=== PATIENT | female | born 1950 | race Caucasian/White ===

== ENCOUNTER 2021-03-09 07:42 | Outpatient (REF) | payer MEDICARE, SELFPAY ==
[2021-03-09 11:49] LABS: Hematocrit 39.2 % (37-47); Hemoglobin 12.2 g/dl (12.0-16.0); Mean Corpuscular HGB Conc 31.1 g/dl (31.0-35.0); Mean Corpuscular Hemoglobin 28.8 pg (27.0-33.0); Mean Corpuscular Volume 92.7 fL (80-98); Mean Platelet Volume 9.8 fL (9.4-12.3); Platelet Count 213 X10*3/uL (160-400); Red Blood Count 4.23 X10*6/uL (4.20-5.50); Red Cell Distribution Width 13.6 % (11.0-16.0); White Blood Count 5.4 X10*3/uL (4.8-10.8)
[2021-03-09 12:11] LABS: Glucose Urine UA NEG (NEG); Leukocyte Esterase Urine NEG (NEG); Nitrite Urine NEG (NEG); Specific Gravity - Urine 1.015 (1.005-1.025); Urine Blood 1+ (NEG); Urine Ketones NEG (NEG); Urine Protein NEG (NEG-TRACE)
[2021-03-09 12:14] LABS: Alanine Aminotransferase 17 U/L (0-31); Alkaline Phosphatase 83 U/L (39-117); Anion Gap 11 (12-20); Aspartate Amino Transferase 19 U/L (5-31); Bilirubin Total 0.6 mg/dL (0.0-1.0); Blood Urea Nitrogen 21 mg/dL (9-16); Calcium 9.3 mg/dL (8.4-10.2); Carbon Dioxide 27 mmol/L (22-29); Chloride 105 mmol/L (96-108); Cholesterol 185 mg/dL; Estimated Glomerular Filt Rate > 60; Glucose Fasting 111 mg/dL (60-99); HDL Cholesterol 57 mg/dL; LDL Cholesterol Calculated 111 mg/dl; Potassium 4.3 mmol/L (3.3-5.1); Sodium 139 mmol/L (135-145); Total Protein 6.8 g/dL (6.5-8.0); Triglycerides 85 mg/dL
[2021-03-09 12:23] LABS: Appearance Urine CLEAR; Color Urine YELLOW
[2021-03-09 12:34] LABS: TSH reflex Free T4 1.78 uIU/mL (0.32-4.0)
[2021-03-09 12:46] LABS: RBC Urine 0-2 /HPF (0); Squamous Epithelial Cell Urine TRACE /LPF; WBC Urine 0 /HPF (0-4)
== END 2021-03-09 07:43 | disposition home or self-care (01) ==
LOC: HO.HMGCLDS 07:42
PROVIDERS: PCP Internal Medicine; Visit Provider Internal Medicine
DX: Z00.00 Encounter for general adult medical examination without abnormal findings (principal)
CPT/HCPCS: 36415; 80053; 80061; 81001; 84443; 85027

== ENCOUNTER 2021-04-07 12:58 | Outpatient (REF) | payer MEDICARE, SELFPAY ==
--- NOTE | ~2021-04-07 | MM_ITS ---
EXAMINATION: BONE DENSITOMETRY CLINICAL INDICATION: Asymptomatic menopausal state. Encounter for screening for osteoporosis. COMPARISON: This is the patient's baseline examination. TECHNIQUE: Using a [employer] DXA System (software version: 13.1) manufactured by [employer], dual-energy x-ray absorptiometry was performed of the lumbar spine and left hip. The images are of good technical quality. Summary results are attached. FINDINGS: AP SPINE L1-L2 (excluding L3 and L4): The data of L1-L4 has been changed to exclude the L3 and L4 vertebral bodies, because increased sclerosis at these levels may cause overestimation of lumbar spine density. BMD 1.147 g/cm2, Z-score 0.4, T-score -0.2, normal. LEFT FEMUR, NECK: BMD 0.920 g/cm2, Z-score 0.1, T-score -0.8, normal. LEFT FEMUR, TOTAL: BMD 1.015 g/cm2, Z-score 0.7, T-score 0.1, normal. IDENTIFIED RISK FACTORS: Menopause. HISTORY OF FRACTURE: None listed. MEDICATIONS: Calcium or multivitamin. MM/XR DEXA axial skeleton IMPRESSION: 1. DIAGNOSIS: Normal bone density based on the lowest T-score value of -0.8 in the femoral neck applying World Health Organization criteria. 2. 10-YEAR FRACTURE RISK PREDICTION, FRAX: According to the guidelines, FRAX calculation should only be performed on patients in the osteopenia bone density category. Therefore, FRAX was not performed on this patient. 3. Treatment Recommendations: NOF guidelines recommend consideration for treatment in postmenopausal women and men age 50 and older presenting with the following: -A hip or vertebral (clinical or morphometric) fracture. -T-score less than or equal to -2.5 at the femoral neck or spine after appropriate evaluation to exclude secondary causes. -Low bone mass at the hip or spine and a 10-year fracture probability by FRAX of greater than or equal to 3% for hip fracture or greater than or equal to 20% for major osteoporotic fracture based on the [place] adapted WHO algorithm. 4. Other Recommendations: All treatment decisions require clinical judgment and consideration of individual patient factors, including patient preferences, comorbidities, previous drug use, risk factors not captured in the FRAX model (e.g. frailty, falls, vitamin D deficiency, increased bone turnover, interval significant decline in bone density) and possible under or overestimation of fracture risk by FRAX. FUTURE SCAN RECOMMENDATION: People with diagnosed cases of osteoporosis or at high risk for fracture should have regular bone mineral density tests. For patients eligible for Medicare, routine testing is allowed once every 2 years. The testing frequency can be increased to one year for patients who have rapidly progressing disease, those who are receiving or discontinuing medical therapy to restore bone mass, or have additional risk factors.
== END 2021-04-07 12:59 | disposition home or self-care (01) ==
LOC: HO.MAMMO 12:58
PROVIDERS: PCP Internal Medicine; Visit Provider Internal Medicine
DX: Z13.820 Encounter for screening for osteoporosis (principal); Z78.0 Asymptomatic menopausal state; Z79.899 Other long term (current) drug therapy
CPT/HCPCS: 77080

== ENCOUNTER 2021-09-12 11:31 | Outpatient (REF) | payer MEDICARE, SELFPAY ==
[2021-09-12 14:56] LABS: Estimated Average Glucose 128 mg/dL; Hemoglobin A1c % 6.1 %
[2021-09-12 15:07] LABS: Alanine Aminotransferase 17 U/L (0-31); Albumin Level 4.3 g/dL (3.5-5.0); Alkaline Phosphatase 93 U/L (39-117); Anion Gap 12 (12-20); Aspartate Amino Transferase 19 U/L (5-31); Bilirubin Total 0.4 mg/dL (0.0-1.0); Blood Urea Nitrogen 18 mg/dL (9-16); Calcium 9.7 mg/dL (8.4-10.2); Carbon Dioxide 29 mmol/L (22-29); Chloride 104 mmol/L (96-108); Estimated Glomerular Filt Rate > 60; Glucose Fasting 101 mg/dL (60-99); Potassium 4.5 mmol/L (3.3-5.1); Sodium 140 mmol/L (135-145); Total Protein 7.4 g/dL (6.5-8.0)
== END 2021-09-12 11:32 | disposition home or self-care (01) ==
LOC: HO.HMGCLDS 11:31
PROVIDERS: Visit Provider Internal Medicine
DX: Z00.00 Encounter for general adult medical examination without abnormal findings (principal); R73.9 Hyperglycemia, unspecified; I10 Essential (primary) hypertension; E55.9 Vitamin D deficiency, unspecified
CPT/HCPCS: 36415; 80053; 83036

== ENCOUNTER 2022-01-15 08:52 | Outpatient (REF) | payer MEDICARE, SELFPAY ==
--- NOTE | ~2022-01-15 | XR_ITS ---
EXAMINATION: XR CHEST CLINICAL INFORMATION: Acute bronchitis. COMPARISON: Chest 05/29/2019 TECHNIQUE: 2 views of the chest were obtained. FINDINGS: The lungs are well-expanded and clear. The heart size and pulmonary vascularity is normal. There is moderate spondylosis dorsal spine. No lytic process XR/XR chest 2V IMPRESSION: No acute cardiopulmonary process seen. There is moderate spondylosis dorsal spine
== END 2022-01-15 08:53 | disposition home or self-care (01) ==
LOC: HO.HMGCX 08:52
PROVIDERS: PCP Internal Medicine; Visit Provider Internal Medicine
DX: J20.9 Acute bronchitis, unspecified (principal)
CPT/HCPCS: 71046

== ENCOUNTER 2022-04-13 07:36 | Outpatient (REF) | payer MEDICARE, SELFPAY ==
[2022-04-13 11:34] LABS: Hematocrit 37.5 % (37.0-47.0); Mean Corpuscular Hemoglobin 29.9 pg (27.0-33.0); Mean Corpuscular Volume 93.3 fL (80.0-98.0); Mean Platelet Volume 9.7 fL (9.4-12.3); Platelet Count 224 X10*3/uL (160-400); Red Blood Count 4.02 X10*6/uL (4.20-5.50); Red Cell Distribution Width 13.6 % (11.0-16.0); White Blood Count 5.9 X10*3/uL (4.8-10.8)
[2022-04-13 11:49] LABS: Estimated Average Glucose 126 mg/dL
[2022-04-13 12:20] LABS: Cholesterol 192 mg/dL; HDL Cholesterol 53 mg/dL; LDL Cholesterol Calculated 118 mg/dl; Triglycerides 107 mg/dL; Vitamin D 25-OH Total 32.6 ng/mL (>30)
== END 2022-04-13 07:37 | disposition home or self-care (01) ==
LOC: HO.HMGCLDS 07:36
PROVIDERS: PCP Internal Medicine; Visit Provider Internal Medicine
DX: Z00.00 Encounter for general adult medical examination without abnormal findings (principal); R73.9 Hyperglycemia, unspecified; E55.9 Vitamin D deficiency, unspecified; I10 Essential (primary) hypertension
CPT/HCPCS: 36415; 80061; 82306; 83036; 84443; 85027

== ENCOUNTER 2023-04-19 07:57 | Outpatient (REF) | payer MEDICARE, SELFPAY ==
[2023-04-19 11:11] LABS: MANUAL DIFF FLAG NO
[2023-04-19 11:34] LABS: Basophils Percent Auto 0.6 % (0-2); Eosinophils Absolute Auto 0.3 X10*3/uL (0.0-0.4); Eosinophils Percent Auto 4.7 % (0-4); Hematocrit 36.1 % (37.0-47.0); Hemoglobin 11.4 g/dl (12.0-16.0); Imm Gran Abs Auto 0.02 X10*3/uL (0.00-0.03); Imm Gran Pct Auto 0.3 % (0.0-0.4); Lymphocytes Absolute Auto 1.9 X10*3/uL (1.2-4.9); Lymphocytes Percent Auto 28.3 % (20-40); Mean Corpuscular HGB Conc 31.6 g/dl (31.0-35.0); Mean Corpuscular Hemoglobin 29.6 pg (27.0-33.0); Mean Corpuscular Volume 93.8 fL (80.0-98.0); Mean Platelet Volume 9.6 fL (9.4-12.3); Monocytes Absolute Auto 0.6 X10*3/uL (0.1-1.2); Monocytes Percent Auto 9.4 % (2-11); Neutrophils Absolute Auto 3.9 x10*3/uL (2.0-8.3); Neutrophils Percent Auto 56.7 % (45-73); Platelet Count 230 X10*3/uL (160-400); Red Blood Count 3.85 X10*6/uL (4.20-5.50); White Blood Count 6.8 X10*3/uL (4.8-10.8)
[2023-04-19 11:50] LABS: Estimated Average Glucose 123 mg/dL; Hemoglobin A1c % 5.9 % (<6.0)
[2023-04-19 11:56] LABS: Alanine Aminotransferase 19 U/L (0-31); Albumin Level 4.1 g/dL (3.5-5.0); Alkaline Phosphatase 85 U/L (39-117); Anion Gap 11 (12-20); Aspartate Amino Transferase 19 U/L (5-31); Bilirubin Total 0.3 mg/dL (0.0-1.0); Blood Urea Nitrogen 17 mg/dL (9-16); Calcium 9.4 mg/dL (8.4-10.2); Carbon Dioxide 28 mmol/L (22-29); Chloride 104 mmol/L (96-108); Cholesterol 201 mg/dL (<200); Estimated Glomerular Filt Rate > 60; Glucose Fasting 124 mg/dL (60-99); HDL Cholesterol 50 mg/dL (>40); LDL Cholesterol Calculated 127 mg/dL (<100); Potassium 4.3 mmol/L (3.3-5.1); Sodium 139 mmol/L (135-145); Total Protein 7.2 g/dL (6.5-8.0); Triglycerides 123 mg/dL (<150)
[2023-04-19 12:57] LABS: Creatinine Urine 86.32 mg/dL; Microalbum/Creatinine Ratio Ur 18.5 ug/mg cr (<30)
== END 2023-04-19 07:58 | disposition home or self-care (01) ==
LOC: HO.HMGCLDS 07:57
PROVIDERS: PCP Internal Medicine; Visit Provider Internal Medicine
DX: Z00.00 Encounter for general adult medical examination without abnormal findings (principal); E55.9 Vitamin D deficiency, unspecified; R73.9 Hyperglycemia, unspecified
CPT/HCPCS: 36415; 80053; 80061; 82043; 82570; 83036; 85025

== ENCOUNTER 2023-04-26 08:51 | Outpatient (AMB) | payer MEDICARE, SELFPAY ==
--- NOTE | 2023-04-26 09:11 | AM.OFFVISMDC ---
Intake Vital Signs 04/26/23 09:13 Height 5 ft 6 in Weight 233 lb BMI 37.6 BP 128/74 Blood Pressure Location Lt brachial Position Sitting Pulse 62 Pulse Source Pulse Oximeter Pulse Oximetry (%) 95 Oxygen Delivery Method Room Air Intake Visit Reasons: MAW Intake Note: Pt is here today for AWV. Allergies acetaminophen [Percocet] Allergy (Unknown, Verified 04/26/23 09:18) chest pressure oxycodone [Percocet] Allergy (Unknown, Verified 04/26/23 09:18) chest pressure bee Allergy (Uncoded 04/26/23 09:18) throat swelling Medication List - Last Reconciled 04/26/23 by Deborah Hines MD acetaminophen (Tylenol) 650 mg PO BID PRN albuterol sulfate 90 mcg/actuation 1 inh inhalation QID PRN aspirin 325 mg PO DAILY atenolol 50 mg PO DAILY celecoxib (Celebrex) PO fluticasone propionate 50 mcg/actuation 1 spray intranasal DAILY furosemide 20 mg PO DAILY HPI MAW HPI Details Pt presents for annual visit. Pt had L knee arthroplasty 1 month ago and recovered well. Patient complains of chronic epigastric abdominal discomfort worse after eating. She denies nausea vomiting change in bowel habits hematochezia melena. Patient has a history of peptic ulcer disease and H pylori infection over 10 years ago. She would like to see a cloth covered helmet puller for a Initiated the conversation about Advanced Directives. Advanced Directives help? patients prepare for current and future decisions about their medical treatment? and place of care. Discussed with patient that it is a process where a patients? current condition and prognosis are reviewed, their wishes for information? regarding their illness are elicited, and likely medical dilemmas are presented? and options discussed. The form can be amended as needed, reviewed yearly and? make changes as needed IPPE/AWV ? year old presents? for her ? Annual? Wellness Visit, initial visit.? Medical / Social History Reviewed? Past Medical History ?Yes? . ? [place]? of Care / Care Team list updated ?Yes . ? Surgical/Hospitalization? History ?Yes . ? Current Medications? (including OTC and supplements) ?Yes . ? Family History ?Yes? . ? Tobacco? Control form ?Yes . ? AUDIT-C (Alcohol use) form? ?Yes . ? Illicit drug use in Social? History ?Yes . ? Current diagnosis of? depression? ?No ? Appropriate PHQ2/PHQ9? completed ?Yes . ? Data entered by ?Medical? Boom Supervisor and reviewed by provider ? Fall Risk ? Fall? History? Have you had any falls with? injury in the past year? ?No . ? Have you had two or more? falls in the past year? ?No . ? Fall Risk Assessment: ?No? falls in the past year . ? HRA filled out by? the patient, reviewed by Provider and scanned. ? IPPE/AWV ? Balance? [place]? ?Yes . ? Tandem? walk ?Yes . ? Walk and? Turn ?Yes . ? Rise from? sit to stand ?Yes . ?Vision? Corrective? lens ?Yes ? Vision? screen ? Up-to-date, has an appointment [] for vision? screening and glaucoma screening ?Hearing? Whisper? test ?pass .? Initiated the conversation about Advanced Directives. Advanced Directives help? patients prepare for current and future decisions about their medical treatment? and place of care. Discussed with patient that it is a process where a patients? current condition and prognosis are reviewed, their wishes for information? regarding their illness are elicited, and likely medical dilemmas are presented? and options discussed. The form can be amended as needed, reviewed yearly and? make changes as needed Written? Plan?Completed. See Patient? Documents. repeat EGD and is due for colonoscopy. [facility] Medical History Vitamin D deficiency Hyperglycemia HTN (hypertension) Mammogram normal Postmenopausal Annual physical exam Primary osteoarthritis of both knees Surgical History H/O colonoscopy History of right knee joint replacement Family History Father Stroke Mother Diabetes Social History Housing: House Patient Tobacco Use Status: Never used Tobacco e-Cigarette/Vaping Use: Never Used Current occupational status: employed Cognitive needs: No Hearing needs: No Vision needs: No Questionnaire Medicare Wellness Checkup [age] What gender do you identify with?: female During the past 4 weeks, how much have you been bothered by emotional problems such as feeling anxious, depressed, irritable, sad or downhearted, and blue?: slightly During the past 4 weeks, has your physical & emotional health limited your social activities with family, friends, neighbors, or groups?: slightly During the past 4 weeks, how much bodily pain have you generally had?: mild pain During the past 4 weeks, was someone available to help you if you needed & wanted help?: yes, as much as I wanted During the past 4 weeks, what was the hardest physical activity you could do for at least 2 minutes?: light Can you get to places out of walking distance without help? (For eg., can you travel alone on buses, taxis or drive your car?): No Can you go shopping for groceries or clothes without someone's help?: No Can you prepare your own meals?: Yes Can you do your housework without help?: Yes Because of any health problems, do you need the help of another person with your personal care needs such as eating, bathing, dressing or getting around the house?: No Can you handle your own money without help?: Yes During the past 4 weeks, how would you rate your health in general?: very good During the past 4 weeks how have things been going for you?: pretty well Are you having difficulties driving your car?: not applicable, I don't use a car Do you always fasten your seat belt when you are in a car?: yes, usually During past 4 weeks, have you been bothered by the following: never: Falling or dizzy when standing up, Trouble eating well?, Teeth or denture problems? and Problems using the telephone? and seldom: Sexual problems? and Tiredness or fatigue? Have you fallen 2 or more times in the past year?: No Are you afraid of falling?: No Are you a smoker?: no During the past 4 weeks, how many drinks of wine, beer, or other alcoholic beverages did you have?: no alcohol at all Do you exercise for about 20 minutes 3 or more times a week?: yes, most of the time Have you been given information to help with the following?: no: Hazards in your house that might hurt you? and no: Keeping track of your medications? How often do you have trouble taking medicines the way you have been told to take them?: I always take medicine as prescribed How confident are you that you can control & manage most of your health problems?: very confident What is your race?: White Mini Mental State Exam (MMSE) Orientation What is the (year) (season) (date) (day) (month)?: year, season, date, day and month Where are we (state) (county) (town or city) (hospital) (floor)?: state, county, town or city, hospital/clinic and floor Registration Name of 3 unrelated objects clearly and slowly, then ask patient to repeat all 3 of them. (1st repeat determines score. Make sure they can repeat all three): object 1, object 2 and object 3 Attention & Calculation (CHOOSE ONE) Ask pt to begin with 100 & count backward by 7. Stop after 5 repeats. If pt cannot ask them to spell the word WORLD backward.: 93 Spell WORLD backwards (DLROW): 5 letters Recall Ask patient to repeat the 3 items from question #3.: object 1, object 2 and object 3 Language Show patient a wristwatch & ask what it is. Repeat for pencil.: watch and pencil Ask the patient to repeat the phrase 'No ifs, ands, or buts' after you.: correct Ask the patient to 'take a piece of paper with their right hand' 'fold paper in half' 'place paper on floor': take paper in right hand, fold paper in half and place paper on floor Print the sentence 'CLOSE YOUR EYES' on a piece. If patient actually closes eyes then score.: followed written direction Give patient a blank piece of paper & ask to write a sentence. Score if it contains a noun & verb.: sentence contains subject and verb Ask patient to copy figure of intersecting pentagons exactly. Score if all 10 angles & 2 intersects are included.: all 10 angles present & 2 are intersected Score Score: 31 Activity of Daily Living Bathing - sponge bath, tub bath or shower: receives no assistance (gets in/out by self, if usual bathing means Dressing - getting clothes from closets & drawers, including inner/outer garments & fasteners.: gets clothes & gets completely dressed without help Toileting - going to the 'toilet room' for urine/bowel elimination & cleaning self/arranging clothes: goes to toilet room, cleans self, arranges clothes without help Transfer: moves in & out of bed and chair without help (may use support object) Continence: controls urination/bowel movements completely by self Feeding: feeds self without help Total Score: 0 Information obtained from: patient Using telephone: independent Traveling: dependent Shopping: dependent Preparing meals: independent Housework: independent Taking medicine: independent Managing money: independent PHQ-9 Over the last 2 weeks, how often have you been bothered by any of the following problems? 1. Little interest or pleasure in doing things: not at all 2. Feeling down, depressed, or hopeless: not at all 3. Trouble falling or staying asleep, or sleeping too much: not at all 4. Feeling tired or having little energy: not at all 5. Poor appetite or overeating: not at all 6. Feeling bad about yourself - or that you are a failure or have let yourself or your family down: not at all 7. Trouble concentrating on things, such as reading the newspaper or watching television: not at all 8. Moving or speaking so slowly that other people could have noticed. Or the opposite - being so fidgety or restless that you have been moving around a lot more than usual: not at all 9. Thoughts that you would be better off or of hurting yourself in some way: not at all Total score: 0 Depression Screening Interpretation: Negative Source: Developed by Drs. Ezio Stewart, Olinda Caldwell, Twin Mujica and colleagues, with an educational danna from [employer]. Review of Systems Const All systems reviewed & are unremarkable except as noted in HPI and below Reports no additional complaints Eyes Reports no additional complaints ENT Reports no additional complaints Card Reports no additional complaints Resp Reports no additional complaints GI Reports no additional complaints Reports no additional complaints Physical Exam Vital Signs: Last Vital Signs Pulse 62 04/26/23 09:13 BP 128/74 04/26/23 09:13 Pulse Ox 95 04/26/23 09:13 Oxygen Delivery Method Room Air 04/26/23 09:13 BMI result Body Mass Index 37.6 Const General: no acute distress HEENT Head: Yes normal to inspection Neck Neck: Yes no lymphadenopathy and Yes supple Resp Effort & Inspection: normal respiratory effort Auscultation: clear to auscultation bilaterally Cardio Rhythm: regular rhythm Heart sounds: S1 normal heart sound present and S2 normal heart sound present GI Inspection: Yes normal to inspection Palpation (GI): Soft to palpation Percussion: Yes normal to percussion Auscultation: normal bowel sounds Extrem General: Yes no clubbing, cyanosis or edema Assessment & Plan Assessment & Plan (1) PUD (peptic ulcer disease): Comment: hx of PUD, H. pylori 2013? Code(s): K27.9 - Peptic ulcer, site unspecified, unspecified as acute or chronic, without hemorrhage or perforation Plan: refer to GI, try Pepcid and stop ASA (2) Hyperglycemia: Code(s): R73.9 - Hyperglycemia, unspecified Plan: a1c 5.9, ADA diet, exercise, weight loss discussed, f/u 6 mths with labs before (3) HTN (hypertension): Code(s): I10 - Essential (primary) hypertension Plan: cont Atenolol (4) Annual physical exam: Code(s): Z00.00 - Encounter for general adult medical examination without abnormal findings Plan: up to date with mammogram , due for colonoscopy Orders: Orders Comprehensive [place]. Panel Fast 6 Months I10 - Essential (primary) hypertension, R73.9 - Hyperglycemia, unspecified, Z00.00 - Encounter for general adult medical examination without abnormal findings Hemoglobin A1c 6 Months I10 - Essential (primary) hypertension, R73.9 - Hyperglycemia, unspecified, Z00.00 - Encounter for general adult medical examination without abnormal findings Lipid Panel 6 Months I10 - Essential (primary) hypertension, R73.9 - Hyperglycemia, unspecified, Z00.00 - Encounter for general adult medical examination without abnormal findings Complete Blood Count Auto Diff 6 Months I10 - Essential (primary) hypertension, R73.9 - Hyperglycemia, unspecified, Z00.00 - Encounter for general adult medical examination without abnormal findings Microalbumin, Random (w Creat) 6 Months I10 - Essential (primary) hypertension, R73.9 - Hyperglycemia, unspecified, Z00.00 - Encounter for general adult medical examination without abnormal findings TSH reflex Free T4 6 Months I10 - Essential (primary) hypertension, R73.9 - Hyperglycemia, unspecified, Z00.00 - Encounter for general adult medical examination without abnormal findings Referrals Gastroenterology Referral K21.9 - Gastro-esophageal reflux disease without esophagitis, K27.9 - Peptic ulcer, site unspecified, unspecified as acute or chronic, without hemorrhage or perforation Medications: New famotidine (Pepcid) 20 mg PO DAILY 90 tabs 0RF Quality Reporting (2019) Depression/Bipolar (159/160/161/177) PHQ-9: Total score: 0 Coding Level of Care Code Medicare Subsequent (G0439) Diagnoses PUD (peptic ulcer disease) K27.9 Hyperglycemia R73.9 HTN (hypertension) I10 Annual physical exam Z00.00 CPT Codes Advance Care Planning - Time spent: 1-15 minutes, not on file ([id number]) Advance Care Planning Advance Care Planning discussion: Exists, not on file Forms completed: Health Care Proxy Time spent: 1-15 minutes, not on file
[2023-04-26 09:13] VITALS: BP 128/74; PULSE 62; O2SAT 95; BMI 37.6
== END 2023-04-26 10:06 | disposition home or self-care (01) ==
PROVIDERS: Visit Provider Internal Medicine
DX: Z00.00 Encounter for general adult medical examination without abnormal findings (principal); K27.9 Peptic ulcer, site unspecified, unspecified as acute or chronic, without hemorrhage or perforation; R73.9 Hyperglycemia, unspecified; I10 Essential (primary) hypertension
CPT/HCPCS: 1124F; G0439

== ENCOUNTER 2023-06-06 12:41 | Outpatient (AMB) | payer MEDICARE, SELFPAY ==
--- NOTE | 2023-06-06 13:01 | A.OFFVIS_ITS ---
Intake Vital Signs 06/06/23 13:23 Height 5 ft 6 in Weight 225 lb BMI 36.3 BP 127/67 Blood Pressure Location Lt brachial Position Sitting Pulse 68 Intake Visit Reasons: Gastro-esophageal reflux disease Allergies acetaminophen [Percocet] Allergy (Unknown, Verified 04/26/23 09:18) chest pressure oxycodone [Percocet] Allergy (Unknown, Verified 04/26/23 09:18) chest pressure bee Allergy (Uncoded 04/26/23 09:18) throat swelling Medication List - Last Reconciled 06/06/23 by January Soliz PA-C acetaminophen (Tylenol) 650 mg PO BID PRN albuterol sulfate 90 mcg/actuation 1 inh inhalation QID PRN atenolol 50 mg PO DAILY bisacodyl (Dulcolax (bisacodyl)) 20 mg (4 x 5 mg) PO ONCE 1 day famotidine (Pepcid) 20 mg PO DAILY fluticasone propionate 50 mcg/actuation 1 spray intranasal DAILY furosemide 20 mg PO DAILY polyethylene glycol 3350 (Miralax) 238 grams PO ONCE PRN 1 day HPI HPI Comments History of Present Illness Details Accompanied by her adult daughter who interprets for her A 72 y/o female history colon polyps- last colon 10 years ago- unsure of where presents with dysphagia- acid reflux- EGD 10 years ago-she thinks her symptoms are due to not having a coverage for acid reflux. Her appetite is good. She has a normal bowel pattern No family history of GI cancer No cardiac or respiratory issues No nausea, vomiting, hematemesis, hematochezia fever or chills- [facility] Medical History Vitamin D deficiency Hyperglycemia HTN (hypertension) Mammogram normal Postmenopausal Annual physical exam Primary osteoarthritis of both knees Surgical History H/O colonoscopy History of right knee joint replacement Family History Father Stroke Mother Diabetes Social History Housing: House Patient Tobacco Use Status: Never used Tobacco e-Cigarette/Vaping Use: Never Used Current occupational status: employed Cognitive needs: No Hearing needs: No Vision needs: No Review of Systems Const All systems reviewed & are unremarkable except as noted in HPI and below Card Denies chest pain and Denies dyspnea Resp Denies dyspnea GI Denies abdominal pain, Denies hematochezia, Reports change in bowel habits, Reports heartburn, Denies diarrhea, Denies nausea and Denies vomiting Physical Exam Vital Signs: Last Vital Signs Pulse 68 06/06/23 13:23 BP 127/67 06/06/23 13:23 BMI result Body Mass Index 36.3 Const General: cooperative, healthy appearing, comfortable and no acute distress Orientation/consciousness: patient oriented x3 Limitations: language barrier Eyes Sclerae: sclerae normal Resp Effort & Inspection: normal respiratory effort and able to speak in complete sentences Auscultation: clear to auscultation bilaterally and no wheezes Cardio Rate: regular rate Rhythm: regular rhythm Heart sounds: S1 normal heart sound present and S2 normal heart sound present GI Palpation (GI): Soft to palpation and nontender Auscultation: normal bowel sounds Skin General skin exam: no rashes or lesions noted Neuro General: patient oriented x3 Extrem General: Yes full ROM Psych Appearance: grossly normal and well kempt Mental Status: mental status grossly normal Speech and movement: Normal speech and movement present and Clear speech present Affect: normal affect Attitude: cooperative Thought process: Normal thought process present Thought content: Normal thought content present Insight: Good insight present (Psych) Judgement: Good judgement present (Psych) Assessment & Plan Assessment & Plan (1) PUD (peptic ulcer disease): Comment: hx of PUD Code(s): K27.9 - Peptic ulcer, site unspecified, unspecified as acute or chronic, without hemorrhage or perforation (2) GERD (gastroesophageal reflux disease): Code(s): K21.9 - Gastro-esophageal reflux disease without esophagitis (3) COPD (chronic obstructive pulmonary disease): Comment: Declined using Anoro Code(s): J44.9 - Chronic obstructive pulmonary disease, unspecified Plan: No dyspnea (4) History of colon polyps: Comment: History colon polyps Code(s): Z86.010 - Personal history of colonic polyps Plan: Polyp surveillance colonoscopy Plan EGD colonoscopy, MiraLax Gatorade prep 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 Orders: Orders EGD/[place] Combo - GI Use Only Today J44.9 - Chronic obstructive pulmonary disease, unspecified, K21.9 - Gastro-esophageal reflux disease without esophagitis, K27.9 - Peptic ulcer, site unspecified, unspecified as acute or chronic, without hemorrhage or perforation, Z86.010 - Personal history of colonic polyps Medications: New bisacodyl (Dulcolax (bisacodyl)) Day before procedure, prep day Take 4 tablets by mouth upon awakening followed by large glass of water 20 mg (4 x 5 mg) PO ONCE 1 day 4 tabs 0RF colonoscopy prep Z12.11 - Encounter for screening for malignant neoplasm of colon polyethylene glycol 3350 (Miralax) Take as directed by mouth the day before your procedure. 238 grams PO ONCE 1 day PRN 238 grams 0RF laxative effect pantoprazole 40 mg (2 x 20 mg) PO ONCE 30 days PRN 60 tabs 6RF reflux Patient Instructions: EGD and colonoscopy MiraLax Gatorade prep Pantoprazole 40 mg daily Reviewed reflux precautions, avoid culprits Eat slowly chew well Monitor symptom-inform of any changes or concerns Coding Level of Care Code New Pt Level 4 (49205) Diagnoses PUD (peptic ulcer disease) K27.9 GERD (gastroesophageal reflux disease) K21.9 COPD (chronic obstructive pulmonary disease) J44.9 History of colon polyps Z86.010 Time Spent (min) 30 Comment Adult daughter/medical support specialist/interpreted
[2023-06-06 13:23] VITALS: BP 127/67; PULSE 68; BMI 36.3
== END 2023-06-06 13:22 | disposition home or self-care (01) ==
PROVIDERS: PCP Internal Medicine; Visit Provider Physician Assistant
DX: K27.9 Peptic ulcer, site unspecified, unspecified as acute or chronic, without hemorrhage or perforation (principal); K21.9 Gastro-esophageal reflux disease without esophagitis; J44.9 Chronic obstructive pulmonary disease, unspecified; Z86.010 Personal history of colon polyps
CPT/HCPCS: 99204

== ENCOUNTER → 2023-06-06 12:41 | Outpatient (BNVA) | payer MEDICARE, SELFPAY | PROVIDERS: PCP Internal Medicine; Visit Provider Physician Assistant ==

== ENCOUNTER 2023-08-08 09:51 | Day surgery (SDC) | payer MEDICARE, SELFPAY ==
[2023-08-06 14:16] VITALS: BMI 36.3
[2023-08-08 10:02] VITALS: BMI 36.8
[2023-08-08 10:14] VITALS: BP 152/107; PULSE 79; RESP 16; TEMP 35.9; O2SAT 98
--- NOTE | 2023-08-08 12:08 | MHC.SHP ---
Pre-Procedural Eval Section A Date of Service: 08/08/23 Section B Chief Complaint: Peptic ulcer,gerd,hx colonic polyps, Details of Present Illness: dysphagia Relevant Family History (Specify if Yes): No Relevant Social History: None Present Medications: see Short Stay Collaborative assessment Medical History: Significant History (Vitamin D deficiency Hyperglycemia HTN (hypertension) Mammogram normal Postmenopausal Annual physical exam Primary osteoarthritis of both knees) History of Previous Operations: Relevant previous surgery/procedure and date(s) (H/O colonoscopy History of right knee joint replacement) Allergies: Allergies Allergy/AdvReac Type Severity Reaction Status Date / Time acetaminophen [Percocet] Allergy Unknown chest Verified 08/08/23 10:17 pressure oxycodone [Percocet] Allergy Unknown chest Verified 08/08/23 10:17 pressure bee Allergy throat Uncoded 08/08/23 10:17 swelling Review of Systems Sugical H&P ROS: Negative: Constitution, Cardiovascular, Respiratory, Neurological, Psychiatric, Hem-Onc, Allergic/Immunologic, Gastrointestinal, Genitourinary, Musculoskeletal, Integumentary, Endocrine and Eyes/Ears/Nose/Throat Exam Surgical H&P Exam: Normal: HEENT, Normal: Heart, Normal: Lungs, Normal: Extremities, Normal: Abdomen, Normal: Skin and Normal: Neurological Plan Diagnosis/Plan: Unchanged I have reviewed the history and physical and performed a pertinent physical examination on my patient. No changes have occurred unless specified. Time Spent With Patient Time: Total time managing care of this patient today ____ minutes.
--- NOTE | 2023-08-08 12:25 | HO.ANESPROP2 ---
[facility] Active Problems Active Problems: All Active Problems (Updated 08/06/23 @ 14:18 by Vianney Mejia, ALETHEA) History of colon polyps (Acute) PUD (peptic ulcer disease) (Acute) GERD (gastroesophageal reflux disease) (Acute) COPD (chronic obstructive pulmonary disease) (Acute) Acute bronchitis (Acute) Vitamin D deficiency (Acute) Hyperglycemia (Acute) HTN (hypertension) (Acute) Mammogram normal (Acute) Postmenopausal (Acute) Annual physical exam (Acute) Past Medical History Medical History COPD (chronic obstructive pulmonary disease) GERD (gastroesophageal reflux disease) Vitamin D deficiency Hyperglycemia HTN (hypertension) Mammogram normal Postmenopausal Annual physical exam Primary osteoarthritis of both knees Family History Family History Father Stroke Mother Diabetes Family history of problems with anesthesia: No Surgical History Surgical History History of total left knee replacement (TKR) H/O colonoscopy History of right knee joint replacement History of Problems with Anesthesia: No Social History Social History Housing: House Patient Tobacco Use Status: Never used Tobacco e-Cigarette/Vaping Use: Never Used Use of substances other than those prescribed or required for medical reasons: No Are you DNR?: No Advance Directives: No Advance Directives Information Provided: Yes Current occupational status: employed Cognitive needs: No Hearing needs: No Vision needs: No Meds Allergies Allergy/AdvReac Type Severity Reaction Status Date / Time acetaminophen [Percocet] Allergy Unknown chest Verified 08/08/23 10:17 pressure oxycodone [Percocet] Allergy Unknown chest Verified 08/08/23 10:17 pressure bee Allergy throat Uncoded 08/08/23 10:17 swelling Active Medications: Current Medications Lactated Ringer's (Lr) 1,000 mls @ 50 mls/hr IVCONT .Q20H LG Exam Height,Weight and Vital Signs: Height 5 ft 6 in Weight 103.419 kg Last Vital Signs Temp 96.7 F L 08/08/23 10:14 Pulse 79 08/08/23 10:14 Resp 16 08/08/23 10:14 BP 152/107 H 08/08/23 10:14 Pulse Ox 98 08/08/23 10:14 O2 Del Method Room Air 08/08/23 10:14 Airway Mallampati Class: II TM Dist: >3cm Loose/Missing/Broken Teeth: Yes, Upper and Lower Heart: rrr Lungs: clear Assessment and Plan Final Anesthetic Review Family History of Problems with Anesthesia: No History of Problems with Anesthesia: No NPO: Yes ASA Class: III Final Preanesthetic Review: No Changes in Pt Med Stat, Meds/Allgs Chart Reviewed, Consent Obtained/Reviewed and Anes Risks/Benef Reviewed Patient Risk: Intermediate Procedure Risk: Low Anesthetic Plan Anesthetic Plan: MAC: Disposition: Standard PACU
--- NOTE | 2023-08-08 13:13 | P.OP_ITS ---
Operative Note Operative Note Date of Service: 08/08/23 Narrative: Operative Information Procedure Description: EGD, Colonoscopy Indication: dysphagia, hx of colon polyps Anesthesia: MAC FLEXIBLE TRANSORAL UPPER GASTROINTESTINAL ENDOSCOPY AND COLONOSCOPY PROCEDURE NOTE UPPER ENDOSCOPY Consent: Indications for the procedure and potential complications of bleeding, perforation, reaction to medications and missed diagnosis were discussed with the patient and informed consent was obtained. Instrument: Olympus GIF H 190 J mid size upper endoscope Monitoring: Vital signs and clinical assessment, continuous EKG monitoring, Pulse oximetry, Carbon Dioxide monitoring and blood pressure monitoring were done throughout the procedure. Procedure: The patient was placed in the left lateral decubitis position and pre-procedure medications were administered and a bite block was placed. The endoscope was inserted into the mouth and advanced under direct vision to the third part of duodenum. A careful inspection was made as the upper endoscope was withdrawn including a retroflexed examination of the proximal stomach; Findings and interventions are described below. Findings: Larynx:normal Esophagus: GE junction at 40 cm, diaphragm hiatus at 40 cm, mild bogginess and congestion at GEJ, bx taken as well as from distal esophagus --LES and UEs stretched to 20 mm, with balloon, no tears seen Stomach: Patchy erythema in the antrum. Biopsies were obtained. Grade 2 flap valve on retroflexed examination of the cardia. Duodenum: Mild bulbar duodenitis , bx taken Intervention: Biopsies as noted above COLONOSCOPY Instrument: Olympus variable stiffness pediatric scope 190L Colonoscopy Monitoring: Vital signs and clinical assessment, continuous EKG monitoring, Pulse oximetry, Carbon Dioxide monitoring and blood pressure monitoring were done throughout the procedure. Colon withdrawal time was 14 minutes. Procedure: The patient was placed in the left lateral decubitis position and pre-procedure medications were administered. After a digital rectal examination of the ano-rectum, the video colonoscope was inserted into the rectum and advanced through the colon to the cecum/TI. The colonoscope was slowly withdrawn in a retrograde panoramic fashion and the colon mucosa was carefully examined including a retroflexed view of the rectum. Findings and interventions are described below. Procedure Difficulty:moderate Findings: Terminal Ileum-not intubated due to looping Cecum:normal Ascending Colon: x 2 sessile polyps 5-7 mm removed with cold forceps Transverse Colon - x 4 sessile polyps 8-10 mm removed with cold snare Descending Colon:normal Sigmoid Colon: moderate diverticulosis Rectum: Retroflexion with medium sized internal hemorrhoids, grade I Anorectum - normal Colon preparation: [place] Bowel Preparation Scale Right colon; 2 Transverse colon: 2 Left colon; 2 (0 = Unprepared colon segment with mucosa not seen due to solid stool that ca nnot be cleared. 1 = Portion of mucosa of the colon segment seen, but other areas of the colon segment not well seen due to staining, residual stool and/or opaque liquid. 2 = Minor amount of residual staining, small fragments of stool and/or opaque liquid, but mucosa of colon segment seen well. 3 = Entire mucosa of colon segment seen well with no residual staining, small fragments of stool or opaque liquid) Impression and Post Procedure Diagnosis: Endoscopy Findings: gastritis esophagitis duodenitis Colonoscopy Findings: polyps internal hemorrhoids diverticular disease Plan: Await Pathology results Repeat Colonoscopy in 3-4 years if health allows or earlier if clinically indicated High fiber diet leaflet avoid straining at stool, epsom salts and sitz bath, anusol supps or cream reflux precautions, may benefit from low dose PPI Above findings were reviewed with the patient and relevant handouts were provided if indicated.
[2023-08-08 13:35] VITALS: BP 115/63; PULSE 85; RESP 20; TEMP 36.3; O2SAT 96
[2023-08-08 13:50] VITALS: BP 143/68; PULSE 68; RESP 16; TEMP 36.3; O2SAT 97
== END 2023-08-08 14:31 | disposition home or self-care (01) ==
PROVIDERS: PCP Internal Medicine; Visit Provider Internal Medicine Gastroenterology
PROC: (CPT 43249; principal; 2023-08-08 13:00)
DX: K29.60 Other gastritis without bleeding (principal); K29.80 Duodenitis without bleeding; K20.80 Other esophagitis without bleeding; K22.89 Other specified disease of esophagus; K21.9 Gastro-esophageal reflux disease without esophagitis; Z12.11 Encounter for screening for malignant neoplasm of colon; D12.3 Benign neoplasm of transverse colon; D12.2 Benign neoplasm of ascending colon; K57.30 Diverticulosis of large intestine without perforation or abscess without bleeding; K64.0 First degree hemorrhoids; Z86.010 Personal history of colon polyps; I10 Essential (primary) hypertension; J44.9 Chronic obstructive pulmonary disease, unspecified; E55.9 Vitamin D deficiency, unspecified; Z79.899 Other long term (current) drug therapy
CPT/HCPCS: 43249; 43239; 45385; 45380; 88305; 88342; C1726; J2704

== ENCOUNTER → 2023-08-08 09:51 | Outpatient (BNV) | payer MEDICARE, SELFPAY | PROVIDERS: PCP Internal Medicine; Visit Provider Internal Medicine Gastroenterology | DX: K20.90 Esophagitis, unspecified without bleeding (principal); K29.90 Gastroduodenitis, unspecified, without bleeding; K63.5 Polyp of colon; K57.90 Diverticulosis of intestine, part unspecified, without perforation or abscess without bleeding; K64.8 Other hemorrhoids | CPT/HCPCS: 43239; 43249; 45380; 45385 ==

== ENCOUNTER 2023-08-22 08:02 | Outpatient (AMB) | payer MEDICARE, SELFPAY ==
[2023-08-22 08:04] VITALS: BP 149/67; PULSE 59; BMI 37.0
--- NOTE | 2023-08-22 08:04 | MHC.OFFVIS ---
Intake Vital Signs 08/22/23 08:04 Height 5 ft 6 in Weight 229 lb 4.492 oz BMI 37.0 BP 149/67 H Blood Pressure Location Lt brachial Position Sitting Pulse 59 Intake Visit Reasons: s/p egd/colon Intake Note: Roseanne presents in the office as a follow up egd and colonoscopy. CC: She states that she just wants some clarification on the results to the procedures. 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 Allergies acetaminophen [Percocet] Allergy (Unknown, Verified 08/22/23 08:09) chest pressure oxycodone [Percocet] Allergy (Unknown, Verified 08/22/23 08:09) chest pressure bee Allergy (Uncoded 08/22/23 08:09) throat swelling Medication List - Last Reconciled 08/22/23 by January Soliz PA-C atenolol 50 mg PO DAILY furosemide 20 mg PO DAILY HPI HPI Comments History of Present Illness Details A pleasant 72-year-old female follows up today with her daughter present for interpreting after recent EGD and colonoscopy with polypectomy She tolerated procedures well Complains heartburn currently-taking PPI-she had taken pantoprazole however felt it did her nausea so she discontinued. Reviewed procedure report, pathology and recommendation She has a good appetite Bowels her fairly normal No nausea, vomiting hematemesis, hematochezia fever or chills PFSH Medical History COPD (chronic obstructive pulmonary disease) GERD (gastroesophageal reflux disease) Vitamin D deficiency Hyperglycemia HTN (hypertension) Mammogram normal Postmenopausal Annual physical exam Primary osteoarthritis of both knees Surgical History History of esophagogastroduodenoscopy (EGD) History of total left knee replacement (TKR) H/O colonoscopy History of right knee joint replacement Family History Father Stroke Mother Diabetes Social History Housing: House Patient Tobacco Use Status: Never used Tobacco e-Cigarette/Vaping Use: Never Used Current occupational status: employed Cognitive needs: No Hearing needs: No Vision needs: No Review of Systems Const All systems reviewed & are unremarkable except as noted in HPI and below Card Denies chest pain and Denies dyspnea Resp Denies dyspnea GI Denies abdominal pain, Denies hematochezia, Reports heartburn, Denies nausea and Denies vomiting Physical Exam Vital Signs: Last Vital Signs Pulse 59 08/22/23 08:04 BP 149/67 H 08/22/23 08:04 BMI result Body Mass Index 37.0 Const General: cooperative, healthy appearing, comfortable and no acute distress Orientation/consciousness: patient oriented x3 Limitations: language barrier Eyes Sclerae: sclerae normal Resp Effort & Inspection: normal respiratory effort and able to speak in complete sentences Skin General skin exam: no rashes or lesions noted Neuro General: patient oriented x3 Extrem General: Yes full ROM Psych Appearance: grossly normal and well kempt Mental Status: mental status grossly normal Speech and movement: Normal speech and movement present and Clear speech present Affect: normal affect Attitude: cooperative Thought process: Normal thought process present Thought content: Normal thought content present Results Reviewed Results Reviewed: Endoscopy Findings: gastritis esophagitis duodenitis Colonoscopy Findings: polyps internal hemorrhoids diverticular disease Plan: Await Pathology results Repeat Colonoscopy in 3-4 years if health allows or earlier if clinically indicated High fiber diet leaflet avoid straining at stool, epsom salts and sitz bath, anusol supps or cream reflux precautions, may benefit from low dose PPI Above findings were reviewed with the patient and relevant handouts were provided if indicated. A. Colon, transverse, 4 polyps: Tubular adenomas (multiple pieces); negative for high-grade dysplasia and carcinoma. B. Colon, ascending, 2 polyps: Tubular adenomas, two; negative for high-grade dysplasia and carcinoma. C. Duodenum, biopsy: Partially denuded duodenal mucosa with predominantly preserved villi and no specific change. D. Stomach, biopsy: Gastric antral and body mucosa with minimal chronic inactive gastritis; negative for H pylori, intestinal metaplasia and dysplasia. E. Gastroesophageal junction, biopsy: Squamocolumnar mucosa with mild chronic inactive inflammation; negative for intestinal metaplasia and dysplasia. F. Esophagus, distal, biopsy: Squamous mucosa with no specific change; no columnar mucosa present. Clinical History Pre-Op Dx: Dysphagia, GERD, hx colonic polyps Post-Op Dx: Lower: colon polyps, hemorrhoids, diverticulosis; Upper: gastritis, duodenitis, esophagitis Microscopic Description Microscopic sections reviewed. Immunostain for H.pylori and D is negative with appropriate control. Material Received A. Transverse colon polyps x4 B. Ascending colon polyps x2 C. Duodenum bx's D. Stomach bx's E. GE junction bx's F. Distal esophagus bx's Gross Description Received in 6 parts. Part A: Received in formalin labeled ?transverse colon polyps x4? are loyola and loyola-pink irregular, rectangular and papular tissue fragments ranging from 0.2 to 0.6 cm, submitted in toto in a cassette Patient: Roseanne Junior Age/Sex: 72/F MR#: [id number] Page 1 of 2 Assessment & Plan Assessment & Plan (1) GERD (gastroesophageal reflux disease): Code(s): K21.9 - Gastro-esophageal reflux disease without esophagitis Plan: Reflux precautions reviewed Omeprazole 20 mg daily (2) History of colon polyps: Comment: History colon polyps Code(s): Z86.010 - Personal history of colonic polyps Plan: Repeat asymptomatic colonoscopy 3 years (3) Diverticulosis of colon: Code(s): K57.30 - Diverticulosis of large intestine without perforation or abscess without bleeding Plan: ER protocol review Maintain high-fiber diet Foods to avoid Plan 3 year repeat colonoscopy reminder to be placed Medications: New omeprazole 20 mg PO DAILY 30 caps 5RF Patient Instructions: Repeat asymptomatic colonoscopy 3 years Reflux precautions reviewed Consistent PPI, omeprazole 20 mg daily Maintain high-fiber diet Diverticulosis/diverticulitis ER protocol reviewed Encouraged to call with any questions or concerns Appreciate the opportunity assist in care this pleasant patient Coding Level of Care Code Est Pt Level 3 (93608) Diagnoses GERD (gastroesophageal reflux disease) K21.9 History of colon polyps Z86.010 Diverticulosis of colon K57.30 Time Spent (min) 30 Comment Daughter interpreted, declined [facility] device
== END 2023-08-22 08:34 | disposition home or self-care (01) ==
PROVIDERS: PCP Internal Medicine; Visit Provider Physician Assistant
DX: K21.9 Gastro-esophageal reflux disease without esophagitis (principal); Z86.010 Personal history of colon polyps; K57.30 Diverticulosis of large intestine without perforation or abscess without bleeding
CPT/HCPCS: 99213

== ENCOUNTER → 2023-08-22 08:02 | Outpatient (BNVA) | payer MEDICARE, SELFPAY | PROVIDERS: PCP Internal Medicine; Visit Provider Physician Assistant | DX: K21.9 Gastro-esophageal reflux disease without esophagitis (principal); K57.30 Diverticulosis of large intestine without perforation or abscess without bleeding; Z86.010 Personal history of colon polyps | CPT/HCPCS: 99212 ==

== ENCOUNTER 2023-10-22 08:25 | Outpatient (REF) | payer MEDICARE, SELFPAY ==
[2023-10-22 11:28] LABS: MANUAL DIFF FLAG NO
[2023-10-22 11:32] LABS: Basophils Percent Auto 0.5 % (0-2); Eosinophils Absolute Auto 0.3 X10*3/uL (0.0-0.4); Eosinophils Percent Auto 3.9 % (0-4); Hematocrit 38.8 % (37.0-47.0); Hemoglobin 12.2 g/dl (12.0-16.0); Imm Gran Abs Auto 0.02 X10*3/uL (0.00-0.03); Imm Gran Pct Auto 0.3 % (0.0-0.4); Lymphocytes Absolute Auto 2.3 X10*3/uL (1.2-4.9); Lymphocytes Percent Auto 33.8 % (20-40); Mean Corpuscular HGB Conc 31.4 g/dl (31.0-35.0); Mean Corpuscular Hemoglobin 28.7 pg (27.0-33.0); Mean Corpuscular Volume 91.3 fL (80.0-98.0); Mean Platelet Volume 9.6 fL (9.4-12.3); Monocytes Absolute Auto 0.6 X10*3/uL (0.1-1.2); Monocytes Percent Auto 9.3 % (2-11); Neutrophils Absolute Auto 3.5 x10*3/uL (2.0-8.3); Neutrophils Percent Auto 52.2 % (45-73); Platelet Count 227 X10*3/uL (160-400); Red Blood Count 4.25 X10*6/uL (4.20-5.50); Red Cell Distribution Width 13.7 % (11.0-16.0); White Blood Count 6.7 X10*3/uL (4.8-10.8)
[2023-10-22 11:51] LABS: Estimated Average Glucose 134 mg/dL; Hemoglobin A1C 151.0943 umol/L; Hemoglobin A1c % 6.3 % (<6.0)
[2023-10-22 12:06] LABS: Alanine Aminotransferase 21 U/L (0-31); Alkaline Phosphatase 89 U/L (39-117); Anion Gap 12 (12-20); Aspartate Amino Transferase 19 U/L (5-31); Bilirubin Total 0.2 mg/dL (0.0-1.0); Blood Urea Nitrogen 19 mg/dL (9-16); Calcium 9.6 mg/dL (8.4-10.2); Carbon Dioxide 28 mmol/L (22-29); Chloride 105 mmol/L (96-108); Cholesterol 179 mg/dL (<200); Estimated Glomerular Filt Rate > 60; Glucose Fasting 133 mg/dL (60-99); HDL Cholesterol 50 mg/dL (>40); LDL Cholesterol Calculated 111 mg/dL (<100); Potassium 4.4 mmol/L (3.3-5.1); Sodium 141 mmol/L (135-145); Total Protein 7.1 g/dL (6.5-8.0); Triglycerides 94 mg/dL (<150)
[2023-10-22 12:08] LABS: TSH reflex Free T4 2.33 uIU/mL (0.32-4.0)
[2023-10-22 12:21] LABS: Creatinine Urine 110.62 mg/dL; Microalbum/Creatinine Ratio Ur 22.5 ug/mg cr (<30)
== END 2023-10-22 08:26 | disposition home or self-care (01) ==
LOC: HO.HMGCLDS 08:25
PROVIDERS: PCP Internal Medicine; Visit Provider Internal Medicine
DX: Z00.00 Encounter for general adult medical examination without abnormal findings (principal); I10 Essential (primary) hypertension; R73.9 Hyperglycemia, unspecified
CPT/HCPCS: 36415; 80053; 80061; 82043; 82570; 83036; 84443; 85025

== ENCOUNTER 2023-10-28 09:57 | Outpatient (AMB) | payer MEDICARE, SELFPAY ==
--- NOTE | 2023-10-28 10:01 | A.OFFPC_ITS ---
Vital Signs 10/28/23 10:02 Height 5 ft 6 in Weight 239 lb BMI 38.6 BP 126/78 Blood Pressure Location Lt brachial Position Sitting Pulse 64 Pulse Source Pulse Oximeter Pulse Oximetry (%) 97 Oxygen Delivery Method Room Air Intake Visit Reasons: 6 month Follow up HTN Intake Note: Pt is here today for 6 months follow up visit on labs. Allergies acetaminophen [Percocet] Allergy (Unknown, Verified 10/28/23 10:08) chest pressure oxycodone [Percocet] Allergy (Unknown, Verified 10/28/23 10:08) chest pressure bee Allergy (Uncoded 10/28/23 10:08) throat swelling Medication List - Last Reconciled 10/28/23 by Deborah Hines MD atenolol 50 mg PO DAILY furosemide 20 mg PO DAILY omeprazole 20 mg PO DAILY Tobacco use date assessed: 10/28/23 Fall risk assessment: No Falls in past year Last assessed Fall Risk: 10/28/23 Dental Screening Dental Screen Date: 10/28/23 Did you have a dental visit in the last 12 months?: Yes Did you have a dental problem in the last 6 months where you did not have access to dental care?: No Was dental information given to patient?: Patient has dentist HPI 6 month Follow up HTN HPI Details Pt presents for HTN, stable on Atenolol. Patient had endoscopy and colonoscopy consistent with 5 polyps and is due to for recheck in 3 years. 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 Medical History COPD (chronic obstructive pulmonary disease) GERD (gastroesophageal reflux disease) Vitamin D deficiency Hyperglycemia HTN (hypertension) Mammogram normal Postmenopausal Annual physical exam Primary osteoarthritis of both knees Surgical History History of esophagogastroduodenoscopy (EGD) History of total left knee replacement (TKR) H/O colonoscopy History of right knee joint replacement Family History Father Stroke Mother Diabetes Social History Housing: House Patient Tobacco Use Status: Never used Tobacco e-Cigarette/Vaping Use: Never Used Current occupational status: employed Cognitive needs: No Hearing needs: No Vision needs: Yes Questionnaire PHQ-9 Over the last 2 weeks, how often have you been bothered by any of the following problems? 1. Little interest or pleasure in doing things: not at all 2. Feeling down, depressed, or hopeless: not at all 3. Trouble falling or staying asleep, or sleeping too much: not at all 4. Feeling tired or having little energy: not at all 5. Poor appetite or overeating: not at all 6. Feeling bad about yourself - or that you are a failure or have let yourself or your family down: not at all 7. Trouble concentrating on things, such as reading the newspaper or watching television: not at all 8. Moving or speaking so slowly that other people could have noticed. Or the opposite - being so fidgety or restless that you have been moving around a lot more than usual: not at all 9. Thoughts that you would be better off or of hurting yourself in some way: not at all Total score: 0 Depression Screening Interpretation: Negative Depression Screening Done: Yes Source: Developed by Drs. Ezio Stewart, Olinda Caldwell, Twin Mujica and colleagues, with an educational danna from [employer]. Thrive Questionnaire Date Thrive assessed: 10/28/23 I am a: Patient What is your living situation today?: I have a steady place to live Within the past 12 months, did the food you bought not last and you didn't have the money to get more?: Never true Within the past 12 months, did you worry whether your food would run out before you got money to buy more?: Never true Do you have trouble paying for medicines?: No Do you have trouble getting transportation to medical appointments?: No Do you have trouble paying your heating and electricity bill?: No Do you have trouble taking care of your child, family member or friend?: No Do you have trouble with day-to-day activities such as bathing, preparing meals, shopping, managing finances, etc.?: No Are you currently unemployed and looking for a job?: No Are you interested in more education?: No Please select the resources that you would like help with: None Currently or been in a relationship where the following occur: no concerns reported THRIVE Score: 0 AUDIT C Alcohol Use Questionnaire (AUDIT-C) 1. How often do you have a drink containing alcohol?: Monthly or less 2. How many drinks containing alcohol do you have on a typical day when you are drinking?: 1 or 2 3. How often do you have six or more drinks on one occasion?: Never Total Score: 1 RAMON-7 AMB Questionnaire RAMON-7 Date RAMON - 7 assessed: 10/28/23 Feeling nervous, anxious, or on edge: 0 = Not at all Not being able to stop or control worryin = Not at all Worrying too much about different things: 0 = Not at all Trouble relaxin = Not at all Being so restless that it is hard to sit still: 0 = Not at all Becoming easily annoyed or irritable: 0 = Not at all Feeling afraid as if something awful might happen: 0 = Not at all Total RAMON-7 score (0-4 normal; 5-9 mild; 10-14 moderate; 15-21 severe): 0 Source: Developed by Drs. Ezio Stewart, Olinda Caldwell, Twin Mujica and colleagues, with an educational danna from [employer]. Review of Systems Const All systems reviewed & are unremarkable except as noted in HPI and below Reports no additional complaints Eyes Reports no additional complaints ENT Reports no additional complaints Card Reports no additional complaints Resp Reports no additional complaints GI Reports no additional complaints Reports no additional complaints Musc Reports no additional complaints Physical exam (Primary Care) Vital Signs: Last Vital Signs Pulse 64 10/28/23 10:02 BP 126/78 10/28/23 10:02 Pulse Ox 97 10/28/23 10:02 Oxygen Delivery Method Room Air 10/28/23 10:02 BMI result Body Mass Index 38.6 Tobacco/Smoking Status: Tobacco use Status Tobacco use date assessed 10/28/23 10/28/23 10:09 Patient Tobacco Use Status Never used Tobacco 10/28/23 10:09 e-Cigarette/Vaping Use Never Used 10/28/23 10:04 PHQ-9: PHQ-9 Score PHQ-9: Total score 0 10/28/23 10:12 Depression Screening Interpretation: Negative Thrive Assessment: Date of Thrive Assessment Date Thrive assessed 10/28/23 10/28/23 10:12 Currently or been in a relationship where the following occur: no concerns reported Const General: no acute distress HENMT Head: Yes normal to inspection Ears: hearing grossly normal bilaterally Face and sinus: Yes normal facial exam Resp Effort & Inspection: normal respiratory effort Auscultation: clear to auscultation bilaterally Cardio Rhythm: regular rhythm Heart sounds: S1 normal heart sound present and S2 normal heart sound present GI Inspection: Yes normal to inspection Palpation (GI): Soft to palpation Percussion: Yes normal to percussion Auscultation: normal bowel sounds Assessment and Plan Assessment & Plan (1) Carpal tunnel syndrome of right wrist: Code(s): G56.01 - Carpal tunnel syndrome, right upper limb Plan: Refer for EMG (2) Hyperglycemia: Code(s): R73.9 - Hyperglycemia, unspecified Plan: ADA diet increase exercise weight loss discussed with the patient follow-up in 3 months with a fasting labs before (3) HTN (hypertension): Code(s): I10 - Essential (primary) hypertension Plan: Continue atenolol (4) COPD (chronic obstructive pulmonary disease): Comment: Declined using Anoro Code(s): J44.9 - Chronic obstructive pulmonary disease, unspecified Plan: Stable off the inhalers Orders: Orders NE electromyogram (EMG) Today G56.01 - Carpal tunnel syndrome, right upper limb Comprehensive [place]. Panel Fast 3 Months I10 - Essential (primary) hypertension, J44.9 - Chronic obstructive pulmonary disease, unspecified, R73.9 - Hyperglycemia, unspecified Complete Blood Count Auto Diff 3 Months I10 - Essential (primary) hypertension, J44.9 - Chronic obstructive pulmonary disease, unspecified, R73.9 - Hyperglycemia, unspecified Lipid Panel 3 Months I10 - Essential (primary) hypertension, J44.9 - Chronic obstructive pulmonary disease, unspecified, R73.9 - Hyperglycemia, unspecified Hemoglobin A1c 3 Months I10 - Essential (primary) hypertension, J44.9 - Chronic obstructive pulmonary disease, unspecified, R73.9 - Hyperglycemia, unspecified Microalbumin, Random (w Creat) 3 Months I10 - Essential (primary) hypertension, J44.9 - Chronic obstructive pulmonary disease, unspecified, R73.9 - Hyperglycemia, unspecified Coding Level of Care Code Est Pt Level 4 (40050) Diagnoses Carpal tunnel syndrome of right wrist G56.01 Hyperglycemia R73.9 HTN (hypertension) I10 COPD (chronic obstructive pulmonary disease) J44.9
[2023-10-28 10:02] VITALS: BP 126/78; PULSE 64; O2SAT 97; BMI 38.6
== END 2023-10-28 10:55 | disposition home or self-care (01) ==
PROVIDERS: PCP Internal Medicine; Visit Provider Internal Medicine
DX: G56.01 Carpal tunnel syndrome, right upper limb (principal); R73.9 Hyperglycemia, unspecified; I10 Essential (primary) hypertension; J44.9 Chronic obstructive pulmonary disease, unspecified
CPT/HCPCS: 99214

== ENCOUNTER 2023-11-20 13:44 | Outpatient (REF) | payer MEDICARE, SELFPAY ==
--- NOTE | 2023-11-20 13:49 | EMG_ITS ---
Chief complaint: After knee surgery last year and using the walker, started having right hand pain and numbness. History of bilateral Carpal Tunnel Syndrome surgery more than 20 years ago, history of right forearm fracture status post ORIF more than 10 years ago. Reason for referral: Evaluate for Carpal Tunnel Syndrome Referred by: Dr. Hines Procedure done: Right upper extremity NCS/EMG Precautions and/or limitations: None Beninese speaking, daughter helped translate. The limb temperature was monitored continuously and remained between 32-36 degrees C during the performance of the NCS. Ulnar motor NCS was performed with moderate elbow flexion between 70-90 degrees, with across-elbow distance of 10 cm. Nerve Conduction Studies Anti Sensory Summary Table ?Stim Site NR Onset (ms) Norm Onset (ms) Peak (ms) Norm Peak (ms) O-P Amp (?V) Norm O-P Amp Site1 Site2 Delta-0 (ms) Dist (cm) Vinod (m/s) Norm Vinod (m/s) Right Median Anti Sensory (2nd Digit) Wrist ? 3.3 4.1 <3.6 6.6 >10 Wrist 2nd Digit 3.3 14.0 42 Right Radial Anti Sensory (Thumb) Forearm ? 1.2 2.0 <3.1 11.7 Forearm Thumb 1.2 0.0 Right Ulnar Anti Sensory (5th Digit) Wrist ? 2.2 2.9 <3.7 1.1 >15.0 Wrist 5th Digit 2.2 14.0 64 Motor Summary Table ?Stim Site NR Onset (ms) Norm Onset (ms) O-P Amp (mV) Norm O-P Amp iAmp (mV) Amp (1st) (%) Site1 Site2 Delta-0 (ms) Dist (cm) Vinod (m/s) Norm Vinod (m/s) Right Median Motor (Abd Poll Brev) Wrist ? 4.5 <3.9 9.1 >4.5 10.5 100.0 Elbow Wrist 4.0 21.5 54 >45 Elbow ? 8.5 8.6 10.0 94.5 Right Ulnar Motor (Abd Dig Minimi) Wrist ? 2.6 <3.0 7.2 >5 8.7 100.0 B Elbow Wrist 3.7 21.0 57 >45 B Elbow ? 6.3 6.4 7.6 88.9 A Elbow B Elbow 2.1 10.0 48 >45 A Elbow ? 8.4 6.8 8.5 94.4 Right UlnarH Motor (FDI) Wrist ? 3.8 <3.0 3.6 >5 4.2 100.0 B Elbow Wrist 4.2 21.0 50 >45 B Elbow ? 8.0 2.2 2.6 61.1 A Elbow B Elbow 2.2 10.0 45 >45 A Elbow ? 10.2 2.2 2.7 61.1 EMG ?Side Muscle Nerve Root Ins Act Fibs Psw Amp Dur Poly Recrt Int Pat Comment Right 1stDorInt Ulnar C8-T1 Incr 1+ 1+ Nml Nml 0 Nml Complete Right FlexCarRad Median C6-7 Nml Nml Nml Nml Nml 0 Nml Complete Right Biceps Musculocut C5-6 Nml Nml Nml Nml Nml 0 Nml Complete Right Triceps Radial C6-7-8 Nml Nml Nml Nml Nml 0 Nml Complete Right Deltoid Axillary C5-6 Nml Nml Nml Nml Nml 0 Nml Complete Paraspinal EMG ?Side Muscle Nerve Root Ins Act Fibs Psw Comment Right Cervical Upper Rami Nml Nml Nml Right Cervical Mid Rami Nml Nml Nml Right Cervical Lower Rami Nml Nml Nml FINDINGS: Right median motor nerve showed prolonged distal latency, normal amplitude and normal conduction velocity. Right ulnar motor nerve, recording FDI muscle, showed prolonged distal latency, small amplitude and slowing of conduction velocity across the elbow. Right median sensory nerve showed prolonged peak latency. Right ulnar sensory nerve showed normal peak latency but small amplitude. All other nerves tested were within normal. Concentric needle EMG was performed in selected muscles of the right upper extremity and cervical paraspinal. Study revealed Signs of electric abnormalities as shown in the table below. Right FDI showed increased insertional activity, PSWs and fibrillations. No denervation seen on paraspinals. IMPRESSION: 1. This is an abnormal study. 2. There is electrodiagnostic evidence for right moderate-severe median neuropathy at the wrist, consistent with carpal tunnel syndrome. 3. There is electrodiagnostic evidence for right ulnar neuropathy at the elbow 4. There is no electrodiagnostic evidence for brachial plexopathy or cervical radiculopathy. Thank you for your kind referral. Kelly Mcclendon MD, DANIA Board Certified, [place] [employer] and [employer] (ABPMR) Board Certified, [place] Board of Electrodiagnostic Medicine (ABEM) CODIN [id number] MTDThomas
== END 2023-11-20 13:45 | disposition home or self-care (01) ==
LOC: HO.NEURO 13:44
PROVIDERS: Visit Provider Internal Medicine
DX: G56.01 Carpal tunnel syndrome, right upper limb (principal)
CPT/HCPCS: 95886; 95909

== ENCOUNTER → 2023-11-20 13:49 | Outpatient (BNV) | payer MEDICARE, SELFPAY | PROVIDERS: Visit Provider Physical Medicine & Rehabilitation | DX: G56.01 Carpal tunnel syndrome, right upper limb (principal); G56.11 Other lesions of median nerve, right upper limb; G56.21 Lesion of ulnar nerve, right upper limb | CPT/HCPCS: 95886; 95909 ==

== ENCOUNTER 2023-11-29 11:25 | Outpatient (AMB) | payer MEDICARE, SELFPAY ==
[2023-11-29 11:31] VITALS: BP 124/70; PULSE 88; O2SAT 97
--- NOTE | 2023-11-29 11:31 | A.OFFPC_ITS ---
Vital Signs 11/29/23 11:31 Height 24 ft Weight 243 lb BMI 2.1 BP 124/70 Blood Pressure Location Lt brachial Position Sitting Pulse 88 Pulse Source Pulse Oximeter Pulse Oximetry (%) 97 Oxygen Delivery Method Room Air Intake Visit Reasons: Heavy Bleedding in the leg area Intake Note: Pt is here today c/o Lt leg bleeding due to scratching leg opened skin Allergies acetaminophen [Percocet] Allergy (Unknown, Verified 10/28/23 10:08) chest pressure oxycodone [Percocet] Allergy (Unknown, Verified 10/28/23 10:08) chest pressure bee Allergy (Uncoded 10/28/23 10:08) throat swelling Medication List - Last Reconciled 11/29/23 by Deborah Hines MD atenolol 50 mg PO DAILY compr.stocking,knee,long,large 10 -20 mmHg with zippers omeprazole 20 mg PO DAILY Tobacco use date assessed: 11/29/23 Fall risk assessment: No Falls in past year Last assessed Fall Risk: 11/29/23 Dental Screening Dental Screen Date: 11/29/23 Did you have a dental visit in the last 12 months?: Yes Was dental information given to patient?: Patient has dentist HPI Heavy Bleedding in the leg area HPI Details Pt c/o bleeding from LLE varicose vein after she scratched her leg last night. The bleeding stopped this morning. Hypertension is controlled on atenolol [facility] Medical History COPD (chronic obstructive pulmonary disease) GERD (gastroesophageal reflux disease) Vitamin D deficiency Hyperglycemia HTN (hypertension) Mammogram normal Postmenopausal Annual physical exam Primary osteoarthritis of both knees Surgical History History of esophagogastroduodenoscopy (EGD) History of total left knee replacement (TKR) H/O colonoscopy History of right knee joint replacement Family History Father Stroke Mother Diabetes Social History Housing: House Patient Tobacco Use Status: Never used Tobacco e-Cigarette/Vaping Use: Never Used Current occupational status: employed Cognitive needs: No Hearing needs: No Vision needs: Yes Questionnaire Thrive Questionnaire Date Thrive assessed: 10/28/23 RAMON-7 AMB Questionnaire RAMON-7 Date RAMON - 7 assessed: 10/28/23 Source: Developed by Drs. Ezio Stewart, Olinda Caldwell, Twin Mujica and colleagues, with an educational danna from [employer]. Review of Systems Const All systems reviewed & are unremarkable except as noted in HPI and below Eyes Reports no additional complaints ENT Reports no additional complaints Resp Reports no additional complaints GI Reports no additional complaints Reports no additional complaints Physical exam (Primary Care) Vital Signs: Last Vital Signs Pulse 88 11/29/23 11:31 BP 124/70 11/29/23 11:31 Pulse Ox 97 11/29/23 11:31 Oxygen Delivery Method Room Air 11/29/23 11:31 BMI result Body Mass Index 2.1 Tobacco/Smoking Status: Tobacco use Status Tobacco use date assessed 11/29/23 11/29/23 11:38 Patient Tobacco Use Status Never used Tobacco 11/29/23 11:38 e-Cigarette/Vaping Use Never Used 11/29/23 11:38 Thrive Assessment: Date of Thrive Assessment Date Thrive assessed 10/28/23 11/29/23 11:38 Const General: no acute distress Resp Effort & Inspection: normal respiratory effort Auscultation: clear to auscultation bilaterally Cardio Rhythm: regular rhythm Heart sounds: S1 normal heart sound present and S2 normal heart sound present Extrem Other: Lower extremities varicosity with atrophic changes no acute bleeding or ulcers present Assessment and Plan Assessment & Plan (1) Carpal tunnel syndrome of right wrist: Code(s): G56.01 - Carpal tunnel syndrome, right upper limb Plan: Patient is being referred to hand surgeon for ulnar nerve compression and carpal tunnel (2) COPD (chronic obstructive pulmonary disease): Comment: Declined using Anoro Code(s): J44.9 - Chronic obstructive pulmonary disease, unspecified Plan: Patient declined Anoro (3) HTN (hypertension): Code(s): I10 - Essential (primary) hypertension Plan: Continue atenolol (4) Varicose veins of both lower extremities: Comment: History of surgery 3 times Code(s): I83.93 - Asymptomatic varicose veins of bilateral lower extremities Plan: Patient was advised to wear compression knee-highs with a zipper elevate lower extremities and prevent skin irritation Medications: New compr.stocking,knee,long,large 10 -20 mmHg with zippers 12 ea 0RF varicose veins Coding Level of Care Code Est Pt Level 4 (27000) Diagnoses Carpal tunnel syndrome of right wrist G56.01 COPD (chronic obstructive pulmonary disease) J44.9 HTN (hypertension) I10 Varicose veins of both lower extremities I83.93
== END 2023-11-29 16:12 | disposition home or self-care (01) ==
PROVIDERS: Visit Provider Internal Medicine
DX: G56.01 Carpal tunnel syndrome, right upper limb (principal); J44.9 Chronic obstructive pulmonary disease, unspecified; I10 Essential (primary) hypertension; I83.93 Asymptomatic varicose veins of bilateral lower extremities
CPT/HCPCS: 99214

== ENCOUNTER 2024-01-14 07:35 | Outpatient (REF) | payer MEDICARE, SELFPAY ==
[2024-01-14 10:19] LABS: MANUAL DIFF FLAG NO
[2024-01-14 10:44] LABS: Basophils Percent Auto 0.3 % (0-2); Eosinophils Absolute Auto 0.2 X10*3/uL (0.0-0.4); Hematocrit 37.5 % (37.0-47.0); Imm Gran Abs Auto 0.01 X10*3/uL (0.00-0.03); Imm Gran Pct Auto 0.2 % (0.0-0.4); Lymphocytes Percent Auto 33.6 % (20-40); Mean Corpuscular Hemoglobin 29.6 pg (27.0-33.0); Mean Corpuscular Volume 92.6 fL (80.0-98.0); Mean Platelet Volume 9.7 fL (9.4-12.3); Monocytes Absolute Auto 0.6 X10*3/uL (0.1-1.2); Monocytes Percent Auto 9.6 % (2-11); Neutrophils Absolute Auto 3.2 x10*3/uL (2.0-8.3); Neutrophils Percent Auto 53.3 % (45-73); Platelet Count 230 X10*3/uL (160-400); Red Blood Count 4.05 X10*6/uL (4.20-5.50); Red Cell Distribution Width 13.7 % (11.0-16.0); White Blood Count 6.1 X10*3/uL (4.8-10.8)
[2024-01-14 11:14] LABS: Estimated Average Glucose 137 mg/dL; Hemoglobin A1C 148.6294 umol/L; Hemoglobin A1c % 6.4 % (<6.0)
[2024-01-14 11:27] LABS: Creatinine Urine 148.25 mg/dL; Microalbum/Creatinine Ratio Ur 23.6 ug/mg cr (<30)
[2024-01-14 11:30] LABS: Alanine Aminotransferase 25 U/L (0-31); Alkaline Phosphatase 80 U/L (39-117); Anion Gap 15 (12-20); Aspartate Amino Transferase 28 U/L (5-31); Bilirubin Total 0.3 mg/dL (0.0-1.0); Blood Urea Nitrogen 16 mg/dL (9-16); Calcium 9.1 mg/dL (8.4-10.2); Carbon Dioxide 24 mmol/L (22-29); Chloride 105 mmol/L (96-108); Cholesterol 166 mg/dL (<200); Estimated Glomerular Filt Rate > 60; Glucose Fasting 127 mg/dL (60-99); HDL Cholesterol 49 mg/dL (>40); LDL Cholesterol Calculated 100 mg/dL (<100); Potassium 4.2 mmol/L (3.3-5.1); Sodium 140 mmol/L (135-145); Triglycerides 88 mg/dL (<150)
== END 2024-01-14 07:36 | disposition home or self-care (01) ==
LOC: HO.HMGCLDS 07:35
PROVIDERS: PCP Internal Medicine; Visit Provider Internal Medicine
DX: R73.9 Hyperglycemia, unspecified (principal); I10 Essential (primary) hypertension; J44.9 Chronic obstructive pulmonary disease, unspecified
CPT/HCPCS: 36415; 80053; 80061; 82043; 82570; 83036; 85025

== ENCOUNTER 2024-01-15 07:49 | Outpatient (AMB) | payer MEDICARE, SELFPAY ==
--- NOTE | 2024-01-15 07:51 | A.OFFVIS_ITS ---
Intake Visit Reasons: N/P RT hand CTR EMG done Intake Note: Roseanne is a 73 year old right hand dominant female who presents to the office today for RT hand CTR. Pt states her ring and pinky fingers are still numb and she also states her thumb is painful most of the time. She states it is hard for her to use her hand still. Accompanied by: Daughter Allergies acetaminophen [Percocet] Allergy (Unknown, Verified 01/15/24 07:51) chest pressure oxycodone [Percocet] Allergy (Unknown, Verified 01/15/24 07:51) chest pressure bee Allergy (Uncoded 01/15/24 07:51) throat swelling Medication List - Last Reconciled 01/15/24 by Mikel Sal PA-C atenolol 50 mg PO DAILY compr.stocking,knee,long,large 10 -20 mmHg with zippers omeprazole 20 mg PO DAILY HPI HPI N/P RT hand CTR EMG done: Details: 73 yo female presents to the office today for right hand pain. Right hand dominant. She states March of last year she had knee surgery and using the walker caused pain in the right hand. Prior to this, she had no pain in the right hand. She also experienced numbness and tingling. She states the n/t is on and off but when she is more active is does worsen. 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 She did have an EMG of the right hand. approx 16 years ago she had Bilat CTR, approx 15 yrs ago ORIF Rt wrist. IMPRESSION: 1. This is an abnormal study. 2. There is electrodiagnostic evidence for right moderate-severe median neuropathy at the wrist, consistent with carpal tunnel syndrome. 3. There is electrodiagnostic evidence for right ulnar neuropathy at the elbow 4. There is no electrodiagnostic evidence for brachial plexopathy or cervical radiculopathy. She has not had any treatment to date of the right hand. [facility] Medical History COPD (chronic obstructive pulmonary disease) GERD (gastroesophageal reflux disease) Vitamin D deficiency Hyperglycemia HTN (hypertension) Mammogram normal Postmenopausal Annual physical exam Primary osteoarthritis of both knees Surgical History History of esophagogastroduodenoscopy (EGD) History of total left knee replacement (TKR) H/O colonoscopy History of right knee joint replacement Family History Father Stroke Mother Diabetes Social History Housing: House Patient Tobacco Use Status: Never used Tobacco e-Cigarette/Vaping Use: Never Used Current occupational status: employed Cognitive needs: No Hearing needs: No Vision needs: Yes Review of Systems Const All systems reviewed & are unremarkable except as noted in HPI and below Physical Exam Const General: cooperative, healthy appearing, comfortable, no acute distress, well developed and alert Orientation/consciousness: patient oriented x3 HEENT Head: Yes normal to inspection, Yes normocephalic and Yes atraumatic Eyes General: appearance normal, both eyes and all related structures Neck Neck: Yes normal visual inspection and Yes no lymphadenopathy Resp Effort & Inspection: normal respiratory effort and able to speak in complete sentences Cardio Rate: regular rate Peripheral pulses: Peripheral pulses 2+ throughout GI Inspection: Yes normal to inspection Palpation (GI): Soft to palpation Skin General skin exam: no rashes or lesions noted Neuro General: patient oriented x3 Extrem Other: Right wrist: Normal to inspection.?Healed scar over the distal radius. Tenderness over the carpal canal.? Numbness and tingling over the median nerve distribution of the right hand.? Able to make a full fist and fully extend all fingers.? Positive Tinel's. Of note, she does have what appears to be early duputryns along the 2nd palmar crease of the right hand and also on the left. No flexion contractures. Right elbow: Normal to inspection.? Mild Tenderness over the medial aspect of the elbow and Positive Tinel?s along the cubital tunnel.? He has good ROM of the elbow, no pain with supination or pronation. Numbness and tingling over the ulnar nerve distribution of the left hand.? Psych Appearance: grossly normal Mental Status: mental status grossly normal Results Reviewed Results Reviewed: Xrays were obtained in the office today and personally reviewed by me of the right wrist show intact distal radius plate with screws. EMG/NCS 11/20/23 IMPRESSION: 1. This is an abnormal study. 2. There is electrodiagnostic evidence for right moderate-severe median neuropathy at the wrist, consistent with carpal tunnel syndrome. 3. There is electrodiagnostic evidence for right ulnar neuropathy at the elbow 4. There is no electrodiagnostic evidence for brachial plexopathy or cervical radiculopathy. Assessment & Plan Assessment & Plan (1) Cubital tunnel syndrome on right: Code(s): G56.21 - Lesion of ulnar nerve, right upper limb Category: Medical (2) Carpal tunnel syndrome of right wrist: Code(s): G56.01 - Carpal tunnel syndrome, right upper limb Category: Medical (3) Dupuytren contracture: Code(s): M72.0 - Palmar fascial fibromatosis [Dupuytren] Category: Medical Plan We discussed options which include conservative vs operative treatment. Since the patient has been symptomatic for several months and it is impacting their daily life, the decision was made to undergo right cubital and right repeat carpal tunnel release. We discussed risk, benefits and alternatives. Risk including but not limited to infection, weakness, stiffness, ongoing numbness or tingling. The patient does understand all this and would like to proceed with right cubital tunnel release with repeat right carpal tunnel release with Dr. Rivera. They will be booked accordingly. Orders: Orders XR wrist RT min 3V Today M25.531 - Pain in right wrist Patient Instructions: Scribed for Mikel Sal PA-C, by Dayo Zayas special forces medical sergeant, on 01/15/2024 at 8:00 AM EST.? I, Mikel Sal PA-C, have personally reviewed and agree with the information entered by the scribe. Coding Level of Care Code New Pt Level 4 (78305) Diagnoses Cubital tunnel syndrome on right G56.21 Carpal tunnel syndrome of right wrist G56.01 Dupuytren contracture M72.0
== END 2024-01-15 08:31 | disposition home or self-care (01) ==
PROVIDERS: Visit Provider Physician Assistant
DX: G56.21 Lesion of ulnar nerve, right upper limb (principal); G56.01 Carpal tunnel syndrome, right upper limb; M72.0 Palmar fascial fibromatosis [Dupuytren]
CPT/HCPCS: 99204; 99214

== ENCOUNTER 2024-01-15 07:49 | Outpatient (REF) | payer MEDICARE, SELFPAY ==
--- NOTE | ~2024-01-15 | XR_ITS ---
EXAMINATION: XR WRIST, RIGHT CLINICAL INFORMATION: Right wrist pain. COMPARISON: None available. TECHNIQUE: PA, lateral, and oblique views of the right wrist. FINDINGS: There has been ORIF with a plate and screw device overlying the distal radial metaphysis. An acute fracture line is not seen and hardware appears intact. Rounded density distal to ulna likely represents an old healed styloid fracture. Degenerative changes are seen at the 1st CMC joint as well as at the radiocarpal joints. Degenerative changes are also seen at visualized interphalangeal joints and the 1st MCP joint. XR/XR wrist RT min 3V IMPRESSION: 1. No acute fracture is seen. 2. Status post ORIF distal radial metaphysis. 3. Degenerative changes as described above.
== END 2024-01-15 07:50 | disposition home or self-care (01) ==
LOC: HO.HOSX 07:49
PROVIDERS: Visit Provider Physician Assistant
DX: G56.21 Lesion of ulnar nerve, right upper limb (principal); G56.01 Carpal tunnel syndrome, right upper limb; M72.0 Palmar fascial fibromatosis [Dupuytren]
CPT/HCPCS: 73110; 99202

== ENCOUNTER 2024-01-17 10:58 | Outpatient (AMB) | payer MEDICARE, SELFPAY ==
[2024-01-17 11:00] VITALS: BP 120/66; PULSE 61; O2SAT 94; BMI 38.7
--- NOTE | 2024-01-17 11:00 | MHC.PC.OV ---
Vital Signs 01/17/24 11:00 Height 5 ft 6 in Weight 240 lb BMI 38.7 BP 120/66 Blood Pressure Location Lt brachial Position Sitting Pulse 61 Pulse Source Pulse Oximeter Pulse Oximetry (%) 94 Oxygen Delivery Method Room Air Intake Visit Reasons: 3M F/U HTN Intake Note: Pt is here today for 3 months follow up visit on HTN and labs. Allergies acetaminophen [Percocet] Allergy (Unknown, Verified 01/17/24 11:05) chest pressure oxycodone [Percocet] Allergy (Unknown, Verified 01/17/24 11:05) chest pressure bee Allergy (Uncoded 01/17/24 11:05) throat swelling Tobacco use date assessed: 11/29/23 Dental Screening Dental Screen Date: 11/29/23 HPI 3M F/U HTN HPI Details Patient presents for the follow-up hypertension controlled on atenolol. She complains of worsening lower extremities swelling, worse at the end of the day. She was diagnosed with venous insufficiency in the past but has not been able to wear compression knee-highs. Patient denies PND orthopnea dyspnea on exertion but has not been physically active. She was evaluated for right carpal tunnel and cubital tunnel syndrome and surgery was recommended but patient would like to get a 2nd opinion with Dr. Scott. [facility] Medical History COPD (chronic obstructive pulmonary disease) GERD (gastroesophageal reflux disease) Vitamin D deficiency Hyperglycemia HTN (hypertension) Mammogram normal Postmenopausal Annual physical exam Primary osteoarthritis of both knees Surgical History History of esophagogastroduodenoscopy (EGD) History of total left knee replacement (TKR) H/O colonoscopy History of right knee joint replacement Family History Father Stroke Mother Diabetes Social History Housing: House Patient Tobacco Use Status: Never used Tobacco e-Cigarette/Vaping Use: Never Used service: No Current occupational status: employed Cognitive needs: No Hearing needs: No Vision needs: Yes Questionnaire Thrive Questionnaire Date Thrive assessed: 10/28/23 RAMON-7 AMB Questionnaire RAMON-7 Date RAMON - 7 assessed: 10/28/23 Source: Developed by Drs. Ezio Stewart, Olinda Caldwell, Twin Mujica and colleagues, with an educational danna from [employer]. Review of Systems Const All systems reviewed & are unremarkable except as noted in HPI and below Eyes Reports no additional complaints ENT Reports no additional complaints Resp Reports no additional complaints GI Reports no additional complaints Reports no additional complaints Physical exam (Primary Care) Vital Signs: Last Vital Signs Pulse 61 01/17/24 11:00 BP 120/66 01/17/24 11:00 Pulse Ox 94 01/17/24 11:00 Oxygen Delivery Method Room Air 01/17/24 11:00 BMI result Body Mass Index 38.7 Tobacco/Smoking Status: Tobacco use Status Tobacco use date assessed 11/29/23 01/17/24 11:01 Patient Tobacco Use Status Never used Tobacco 01/17/24 11:01 e-Cigarette/Vaping Use Never Used 01/17/24 11:01 Thrive Assessment: Date of Thrive Assessment Date Thrive assessed 10/28/23 01/17/24 11:01 Const General: no acute distress HENMT Head: Yes normal to inspection Face and sinus: Yes normal facial exam Eyes General: appearance normal, both eyes and all related structures Neck Neck: Yes supple Resp Effort & Inspection: normal respiratory effort Auscultation: clear to auscultation bilaterally Cardio Rhythm: regular rhythm Heart sounds: S1 normal heart sound present and S2 normal heart sound present Extrem Other: 2+ pitting edema bilaterally chronic venous stasis and lymphedema of lower extremities Assessment and Plan Assessment & Plan (1) Edema: Code(s): R60.9 - Edema, unspecified Plan: Furosemide 20 mg daily will be started. Patient was advised to elevate lower extremities and of low salt. Basic metabolic panel will be checked in 3 weeks. Patient follow-up in 3 months (2) Carpal tunnel syndrome of right wrist: Code(s): G56.01 - Carpal tunnel syndrome, right upper limb Plan: Referred to Dr. Scott (3) Cubital tunnel syndrome on right: Code(s): G56.21 - Lesion of ulnar nerve, right upper limb Plan: as above (4) HTN (hypertension): Code(s): I10 - Essential (primary) hypertension Plan: Continue Atenolol (5) Hyperglycemia: Code(s): R73.9 - Hyperglycemia, unspecified Plan: A1c is 6.4, ADA diet increase exercise weight loss discussed with the patient follow-up in 3 months with a fasting labs before Orders: Orders Comprehensive [place]. Panel Fast 3 Months G56.21 - Lesion of ulnar nerve, right upper limb, I10 - Essential (primary) hypertension Basic Metabolic Panel 3 Months G56.21 - Lesion of ulnar nerve, right upper limb, I10 - Essential (primary) hypertension, R60.9 - Edema, unspecified Hemoglobin A1c 3 Months G56.21 - Lesion of ulnar nerve, right upper limb, I10 - Essential (primary) hypertension Lipid Panel 3 Months G56.21 - Lesion of ulnar nerve, right upper limb, I10 - Essential (primary) hypertension Referrals Orthopedics Referral G56.01 - Carpal tunnel syndrome, right upper limb, G56.21 - Lesion of ulnar nerve, right upper limb, I10 - Essential (primary) hypertension Medications: New furosemide (Lasix) 20 mg PO DAILY 90 tabs 1RF Coding Level of Care Code Est Pt Level 4 (41347) Diagnoses Edema R60.9 Carpal tunnel syndrome of right wrist G56.01 Cubital tunnel syndrome on right G56.21 HTN (hypertension) I10 Hyperglycemia R73.9
== END 2024-01-17 12:25 | disposition home or self-care (01) ==
PROVIDERS: PCP Internal Medicine; Visit Provider Internal Medicine
DX: R60.9 Edema, unspecified (principal); G56.01 Carpal tunnel syndrome, right upper limb; G56.21 Lesion of ulnar nerve, right upper limb; I10 Essential (primary) hypertension; R73.9 Hyperglycemia, unspecified
CPT/HCPCS: 99214

== ENCOUNTER 2024-04-30 07:44 | Outpatient (REF) | payer MEDICARE, SELFPAY ==
[2024-04-30 10:37] LABS: Estimated Average Glucose 148 mg/dL; Hemoglobin A1C 151.2556 umol/L; Hemoglobin A1c % 6.8 % (<6.0)
[2024-04-30 10:48] LABS: Alanine Aminotransferase 28 U/L (0-31); Alkaline Phosphatase 79 U/L (39-117); Anion Gap 9 (12-20); Aspartate Amino Transferase 24 U/L (5-31); Bilirubin Total 0.5 mg/dL (0.0-1.0); Blood Urea Nitrogen 17 mg/dL (9-16); Calcium 9.3 mg/dL (8.4-10.2); Carbon Dioxide 29 mmol/L (22-29); Chloride 106 mmol/L (96-108); Cholesterol 180 mg/dL (<200); Estimated Glomerular Filt Rate > 60; Glucose Fasting 146 mg/dL (60-99); Glucose Random 145 mg/dL (60-115); HDL Cholesterol 44 mg/dL (>40); LDL Cholesterol Calculated 116 mg/dL (<100); Potassium 4.4 mmol/L (3.3-5.1); Sodium 140 mmol/L (135-145); Total Protein 7.2 g/dL (6.5-8.0); Triglycerides 102 mg/dL (<150)
== END 2024-04-30 07:45 | disposition home or self-care (01) ==
LOC: HO.HMGCLDS 07:44
PROVIDERS: PCP Internal Medicine; Visit Provider Internal Medicine
DX: R60.9 Edema, unspecified (principal); I10 Essential (primary) hypertension; G56.21 Lesion of ulnar nerve, right upper limb; Z13.1 Encounter for screening for diabetes mellitus
CPT/HCPCS: 36415; 80048; 80053; 80061; 83036

== ENCOUNTER 2024-05-07 10:23 | Outpatient (AMB) | payer MEDICARE, SELFPAY ==
--- NOTE | 2024-05-07 10:27 | A.OFFPC_ITS ---
Intake Visit Reasons: V G0439 Allergies acetaminophen [Percocet] Allergy (Unknown, Verified 01/17/24 11:05) chest pressure oxycodone [Percocet] Allergy (Unknown, Verified 01/17/24 11:05) chest pressure bee Allergy (Uncoded 01/17/24 11:05) throat swelling Tobacco use date assessed: 11/29/23 Dental Screening Dental Screen Date: 11/29/23 [facility] Medical History COPD (chronic obstructive pulmonary disease) GERD (gastroesophageal reflux disease) Vitamin D deficiency Hyperglycemia HTN (hypertension) Mammogram normal Postmenopausal Annual physical exam Primary osteoarthritis of both knees Surgical History History of esophagogastroduodenoscopy (EGD) History of total left knee replacement (TKR) H/O colonoscopy History of right knee joint replacement Family History Father Stroke Mother Diabetes Social History Housing: House Patient Tobacco Use Status: Never used Tobacco e-Cigarette/Vaping Use: Never Used service: No Current occupational status: employed Cognitive needs: No Hearing needs: No Vision needs: Yes Questionnaire Thrive Questionnaire Date Thrive assessed: 05/04/24 I am a: Patient What is your living situation today?: I have a steady place to live Within the past 12 months, did the food you bought not last and you didn't have the money to get more?: Never true Within the past 12 months, did you worry whether your food would run out before you got money to buy more?: Never true Do you have trouble paying for medicines?: No Do you have trouble getting transportation to medical appointments?: No Do you have trouble paying your heating and electricity bill?: No Do you have trouble taking care of your child, family member or friend?: No Do you have trouble with day-to-day activities such as bathing, preparing meals, shopping, managing finances, etc.?: No Are you interested in more education?: No Please select the resources that you would like help with: None Currently or been in a relationship where the following occur: No concerns reported THRIVE Score: 0 AUDIT C Alcohol Use Questionnaire (AUDIT-C) 2. How many drinks containing alcohol do you have on a typical day when you are drinking?: 1 or 2 3. How often do you have six or more drinks on one occasion?: Never Total Score: 0 RAMON-7 AMB Questionnaire RAMON-7 Date RAMON - 7 assessed: 10/28/23 Feeling nervous, anxious, or on edge: 0 = Not at all Not being able to stop or control worryin = Not at all Worrying too much about different things: 0 = Not at all Trouble relaxin = Not at all Being so restless that it is hard to sit still: 0 = Not at all Becoming easily annoyed or irritable: 0 = Not at all Feeling afraid as if something awful might happen: 0 = Not at all Total RAMON-7 score (0-4 normal; 5-9 mild; 10-14 moderate; 15-21 severe): 0 Source: Developed by Drs. Ezio Stewart, Olinda Caldwell, Twin Mujica and colleagues, with an educational danna from [employer]. Physical exam (Primary Care) Tobacco/Smoking Status: Tobacco use Status Tobacco use date assessed 11/29/23 01/17/24 11:01 Patient Tobacco Use Status Never used Tobacco 01/17/24 11:01 e-Cigarette/Vaping Use Never Used 01/17/24 11:01 Thrive Assessment: Date of Thrive Assessment Date Thrive assessed 05/04/24 05/04/24 16:41 Currently or been in a relationship where the following occur: No concerns reported Coding
[2024-05-07 10:33] VITALS: BP 118/68; PULSE 66; O2SAT 95; BMI 38.7
--- NOTE | 2024-05-07 10:33 | AM.OFFVISMDC ---
Intake Vital Signs 05/07/24 10:33 Height 5 ft 6 in Weight 240 lb BMI 38.7 BP 118/68 Blood Pressure Location Rt brachial Position Sitting Pulse 66 Pulse Source Pulse Oximeter Pulse Oximetry (%) 95 Oxygen Delivery Method Room Air Intake Visit Reasons: SWV [id number] Allergies acetaminophen [Percocet] Allergy (Unknown, Verified 05/07/24 10:35) chest pressure oxycodone [Percocet] Allergy (Unknown, Verified 05/07/24 10:35) chest pressure metformin Adverse Reaction (Intermediate, Verified 05/07/24 11:52) Abdominal Pain bee Allergy (Uncoded 05/07/24 10:35) throat swelling Medication List - Last Reconciled 05/07/24 by Deborah Hines MD atenolol 50 mg PO DAILY compr.stocking,knee,long,large 10 -20 mmHg with zippers furosemide (Lasix) 20 mg PO DAILY omeprazole 20 mg PO DAILY Ozempic (semaglutide) 0.25 mg (0.368 mL) subcut QWEEK NS HPI SWV G0439 HPI Details Initiated the conversation about Advanced Directives. Advanced Directives help? patients prepare for current and future decisions about their medical treatment? and place of care. Discussed with patient that it is a process where a patients? current condition and prognosis are reviewed, their wishes for information? regarding their illness are elicited, and likely medical dilemmas are presented? and options discussed. The form can be amended as needed, reviewed yearly and? make changes as needed IPPE/AWV ? year old presents? for her ? Annual? Wellness Visit, initial visit.? Medical / Social History Reviewed? Past Medical History ?Yes? . ? [place]? of Care / Care Team list updated ?Yes . ? Surgical/Hospitalization? History ?Yes . ? Current Medications? (including OTC and supplements) ?Yes . ? Family History ?Yes? . ? Tobacco? Control form ?Yes . ? AUDIT-C (Alcohol use) form? ?Yes . ? Illicit drug use in Social? History ?Yes . ? Current diagnosis of? depression? ?No ? Appropriate PHQ2/PHQ9? completed ?Yes . ? Data entered by ?Medical? Molding Process Technician and reviewed by provider ? Fall Risk ? Fall? History? Have you had any falls with? injury in the past year? ?No . ? Have you had two or more? falls in the past year? ?No . ? Fall Risk Assessment: ?No? falls in the past year . ? HRA filled out by? the patient, reviewed by Provider and scanned. ? IPPE/AWV ? Balance? [place]? ?Yes . ? Tandem? walk ?Yes . ? Walk and? Turn ?Yes . ? Rise from? sit to stand ?Yes . ?Vision? Corrective? lens ?Yes ? Vision? screen ? Up-to-date, has an appointment [] for vision? screening and glaucoma screening ?Hearing? Whisper? test ?pass .? Initiated the conversation about Advanced Directives. Advanced Directives help? patients prepare for current and future decisions about their medical treatment? and place of care. Discussed with patient that it is a process where a patients? current condition and prognosis are reviewed, their wishes for information? regarding their illness are elicited, and likely medical dilemmas are presented? and options discussed. The form can be amended as needed, reviewed yearly and? make changes as needed Written? Plan?Completed. See Patient? Documents. [facility] Medical History (Updated 05/07/24 @ 11:49 by Deborah Hines MD) COPD (chronic obstructive pulmonary disease) GERD (gastroesophageal reflux disease) Vitamin D deficiency Hyperglycemia HTN (hypertension) Mammogram normal Postmenopausal Annual physical exam Primary osteoarthritis of both knees Surgical History History of esophagogastroduodenoscopy (EGD) History of total left knee replacement (TKR) H/O colonoscopy History of right knee joint replacement Family History Father Stroke Mother Diabetes Social History Housing: House Patient Tobacco Use Status: Never used Tobacco e-Cigarette/Vaping Use: Never Used service: No Current occupational status: employed Cognitive needs: No Hearing needs: No Vision needs: Yes Questionnaire Medicare Wellness Checkup [age] What gender do you identify with?: female During the past 4 weeks, how much have you been bothered by emotional problems such as feeling anxious, depressed, irritable, sad or downhearted, and blue?: not at all During the past 4 weeks, has your physical & emotional health limited your social activities with family, friends, neighbors, or groups?: not at all During the past 4 weeks, how much bodily pain have you generally had?: very mild pain During the past 4 weeks, was someone available to help you if you needed & wanted help?: yes, as much as I wanted During the past 4 weeks, what was the hardest physical activity you could do for at least 2 minutes?: moderate Can you get to places out of walking distance without help? (For eg., can you travel alone on buses, taxis or drive your car?): Yes Can you go shopping for groceries or clothes without someone's help?: Yes Can you prepare your own meals?: Yes Can you do your housework without help?: Yes Because of any health problems, do you need the help of another person with your personal care needs such as eating, bathing, dressing or getting around the house?: No Can you handle your own money without help?: Yes During the past 4 weeks, how would you rate your health in general?: very good During the past 4 weeks how have things been going for you?: very well; could hardly better Are you having difficulties driving your car?: not applicable, I don't use a car Do you always fasten your seat belt when you are in a car?: yes, usually During past 4 weeks, have you been bothered by the following: never: Falling or dizzy when standing up, Sexual problems?, Trouble eating well?, Teeth or denture problems?, Problems using the telephone? and Tiredness or fatigue? Have you fallen 2 or more times in the past year?: No Are you afraid of falling?: No Are you a smoker?: no During the past 4 weeks, how many drinks of wine, beer, or other alcoholic beverages did you have?: no alcohol at all Do you exercise for about 20 minutes 3 or more times a week?: no, I usually do not exercise this much Have you been given information to help with the following?: no: Hazards in your house that might hurt you? and no: Keeping track of your medications? How often do you have trouble taking medicines the way you have been told to take them?: I always take medicine as prescribed How confident are you that you can control & manage most of your health problems?: very confident What is your race?: White Mini Mental State Exam (MMSE) Orientation What is the (year) (season) (date) (day) (month)?: year, season, date, day and month Where are we (state) (county) (town or city) (hospital) (floor)?: state, county, town or city, hospital/clinic and floor Registration Name of 3 unrelated objects clearly and slowly, then ask patient to repeat all 3 of them. (1st repeat determines score. Make sure they can repeat all three): object 1, object 2 and object 3 Attention & Calculation (CHOOSE ONE) Spell WORLD backwards (DLROW): 5 letters Recall Ask patient to repeat the 3 items from question #3.: object 1, object 2 and object 3 Language Show patient a wristwatch & ask what it is. Repeat for pencil.: watch and pencil Ask the patient to repeat the phrase 'No ifs, ands, or buts' after you.: correct Ask the patient to 'take a piece of paper with their right hand' 'fold paper in half' 'place paper on floor': take paper in right hand, fold paper in half and place paper on floor Print the sentence 'CLOSE YOUR EYES' on a piece. If patient actually closes eyes then score.: followed written direction Give patient a blank piece of paper & ask to write a sentence. Score if it contains a noun & verb.: sentence contains subject and verb Score Score: 29 Activity of Daily Living Bathing - sponge bath, tub bath or shower: receives no assistance (gets in/out by self, if usual bathing means Dressing - getting clothes from closets & drawers, including inner/outer garments & fasteners.: gets clothes & gets completely dressed without help Toileting - going to the 'toilet room' for urine/bowel elimination & cleaning self/arranging clothes: goes to toilet room, cleans self, arranges clothes without help Transfer: moves in & out of bed and chair without help (may use support object) Continence: controls urination/bowel movements completely by self Feeding: feeds self without help Total Score: 0 Information obtained from: patient Using telephone: independent Traveling: independent Shopping: independent Preparing meals: independent Housework: independent Taking medicine: independent Managing money: independent PHQ-9 Over the last 2 weeks, how often have you been bothered by any of the following problems? 1. Little interest or pleasure in doing things: not at all 2. Feeling down, depressed, or hopeless: not at all 3. Trouble falling or staying asleep, or sleeping too much: not at all 4. Feeling tired or having little energy: not at all 5. Poor appetite or overeating: not at all 6. Feeling bad about yourself - or that you are a failure or have let yourself or your family down: not at all 7. Trouble concentrating on things, such as reading the newspaper or watching television: not at all 8. Moving or speaking so slowly that other people could have noticed. Or the opposite - being so fidgety or restless that you have been moving around a lot more than usual: not at all 9. Thoughts that you would be better off or of hurting yourself in some way: not at all Total score: 0 Depression Screening Interpretation: Negative Depression Screening Done: Yes 80474 - PHQ-9 Billing: Yes Source: Developed by Drs. Ezio Stewart, Olinda Caldwell, Twin Mujica and colleagues, with an educational danna from [employer]. Physical Exam Vital Signs: Last Vital Signs Pulse 66 05/07/24 10:33 BP 118/68 05/07/24 10:33 Pulse Ox 95 05/07/24 10:33 Oxygen Delivery Method Room Air 05/07/24 10:33 BMI result Body Mass Index 38.7 Const General: no acute distress Eyes General: appearance normal, both eyes and all related structures Neck Neck: Yes supple Resp Effort & Inspection: normal respiratory effort Auscultation: clear to auscultation bilaterally Cardio Rhythm: regular rhythm Heart sounds: S1 normal heart sound present and S2 normal heart sound present GI Inspection: Yes normal to inspection Palpation (GI): Soft to palpation Percussion: Yes normal to percussion Auscultation: normal bowel sounds Extrem General: Yes no clubbing, cyanosis or edema Assessment & Plan Assessment & Plan (1) Annual physical exam: Code(s): Z00.00 - Encounter for general adult medical examination without abnormal findings Plan: Well-balanced diet regular exercise weight loss discussed with the patient. She is up-to-date with mammogram and colonoscopy (2) HTN (hypertension): Code(s): I10 - Essential (primary) hypertension Plan: Continue attention (3) DM type 2 (diabetes mellitus, type 2): Comment: Metformin caused stomach upset Code(s): E11.9 - Type 2 diabetes mellitus without complications Plan: A1c is 6.7, ADA diet increase exercise weight loss discussed with the patient. Patient tried metformin in the past which caused stomach upset. Ozempic 0.25 weekly for the 1st month then increase to 0.5 mg will be started follow-up in 3 months with a fasting labs before (4) Overweight: Code(s): E66.3 - Overweight Plan: Weight loss discussed with the patient Orders: Orders Comprehensive [place]. Panel Fast 3 Months E11.9 - Type 2 diabetes mellitus without complications, E66.3 - Overweight, I10 - Essential (primary) hypertension, Z00.00 - Encounter for general adult medical examination without abnormal findings Complete Blood Count Auto Diff 3 Months E11.9 - Type 2 diabetes mellitus without complications, E66.3 - Overweight, I10 - Essential (primary) hypertension, Z00.00 - Encounter for general adult medical examination without abnormal findings Hemoglobin A1c 3 Months E11.9 - Type 2 diabetes mellitus without complications, E66.3 - Overweight, I10 - Essential (primary) hypertension, Z00.00 - Encounter for general adult medical examination without abnormal findings Lipid Panel 3 Months E11.9 - Type 2 diabetes mellitus without complications, E66.3 - Overweight, I10 - Essential (primary) hypertension, Z00.00 - Encounter for general adult medical examination without abnormal findings Medications: New Ozempic (semaglutide) for 4 weeks then 0.5 mg weekly 0.25 mg (0.368 mL) subcut QWEEK 9 mL 1RF NS Quality Reporting (2019) Depression/Bipolar (159/160/161/177) PHQ-9: Total score: 0 Coding Level of Care Code Medicare Subsequent (G0439) Diagnoses Annual physical exam Z00.00 HTN (hypertension) I10 DM type 2 (diabetes mellitus, type 2) E11.9 Overweight E66.3 CPT Codes Advance Care Planning - Time spent: 1-15 minutes, not on file ([id number]) Advance Care Planning Advance Care Planning discussion: Exists, not on file Forms completed: Health Care Proxy Time spent: 1-15 minutes, not on file
== END 2024-05-07 11:52 | disposition home or self-care (01) ==
PROVIDERS: PCP Internal Medicine; Visit Provider Internal Medicine
DX: Z00.00 Encounter for general adult medical examination without abnormal findings (principal); I10 Essential (primary) hypertension; E11.9 Type 2 diabetes mellitus without complications; E66.3 Overweight

== ENCOUNTER → 2024-05-07 10:23 | Outpatient (BNVA) | payer MEDICARE, SELFPAY | PROVIDERS: PCP Internal Medicine; Visit Provider Internal Medicine ==

== ENCOUNTER 2024-07-21 09:05 | Outpatient (REF) | payer MEDICARE, SELFPAY ==
[2024-07-21 10:10] LABS: MANUAL DIFF FLAG NO
[2024-07-21 10:29] LABS: Basophils Percent Auto 0.5 % (0-2); Eosinophils Absolute Auto 0.2 X10*3/uL (0.0-0.4); Eosinophils Percent Auto 3.2 % (0-4); Hematocrit 39.7 % (37.0-47.0); Hemoglobin 12.6 g/dl (12.0-16.0); Imm Gran Abs Auto 0.02 X10*3/uL (0.00-0.03); Imm Gran Pct Auto 0.3 % (0.0-0.4); Lymphocytes Percent Auto 33.7 % (20-40); Mean Corpuscular HGB Conc 31.7 g/dl (31.0-35.0); Mean Corpuscular Hemoglobin 29.6 pg (27.0-33.0); Mean Corpuscular Volume 93.2 fL (80.0-98.0); Mean Platelet Volume 9.6 fL (9.4-12.3); Monocytes Absolute Auto 0.5 X10*3/uL (0.1-1.2); Monocytes Percent Auto 7.7 % (2-11); Neutrophils Absolute Auto 3.3 x10*3/uL (2.0-8.3); Neutrophils Percent Auto 54.6 % (45-73); Platelet Count 197 X10*3/uL (160-400); Red Blood Count 4.26 X10*6/uL (4.20-5.50)
[2024-07-21 10:54] LABS: Estimated Average Glucose 134 mg/dL; Hemoglobin A1c % 6.3 % (<6.0); Total Hemoglobin (HGBA1C) 3227.3731 umol/L
[2024-07-21 11:45] LABS: Alanine Aminotransferase 27 U/L (0-31); Alkaline Phosphatase 73 U/L (39-117); Anion Gap 13 (12-20); Aspartate Amino Transferase 23 U/L (5-31); Bilirubin Total 0.3 mg/dL (0.0-1.0); Blood Urea Nitrogen 16 mg/dL (9-16); Calcium 9.1 mg/dL (8.4-10.2); Carbon Dioxide 29 mmol/L (22-29); Chloride 103 mmol/L (96-108); Cholesterol 167 mg/dL (<200); Estimated Glomerular Filt Rate > 60; Glucose Fasting 106 mg/dL (60-99); HDL Cholesterol 40 mg/dL (>40); LDL Cholesterol Calculated 102 mg/dL (<100); Potassium 4.3 mmol/L (3.3-5.1); Sodium 141 mmol/L (135-145); Total Protein 7.1 g/dL (6.5-8.0); Triglycerides 129 mg/dL (<150)
== END 2024-07-21 09:06 | disposition home or self-care (01) ==
LOC: HO.HMGCLDS 09:05
PROVIDERS: PCP Internal Medicine; Visit Provider Internal Medicine
DX: Z00.00 Encounter for general adult medical examination without abnormal findings (principal); E11.9 Type 2 diabetes mellitus without complications; I10 Essential (primary) hypertension; E66.3 Overweight
CPT/HCPCS: 36415; 80053; 80061; 83036; 85025

== ENCOUNTER 2024-07-23 09:43 | Outpatient (AMB) | payer MEDICARE, SELFPAY ==
[2024-07-23 09:44] VITALS: BP 120/78; PULSE 92; O2SAT 97; BMI 37.6
--- NOTE | 2024-07-23 09:44 | MHC.PC.OV ---
Vital Signs 07/23/24 09:44 Height 5 ft 6 in Weight 233 lb BMI 37.6 BP 120/78 Blood Pressure Location Lt brachial Position Sitting Pulse 92 Pulse Source Pulse Oximeter Pulse Oximetry (%) 97 Oxygen Delivery Method Room Air Intake Visit Reasons: 3 months follow up visit Intake Note: Pt is here today for 3 months follow up visit. Allergies acetaminophen [Percocet] Allergy (Unknown, Verified 07/23/24 09:47) chest pressure oxycodone [Percocet] Allergy (Unknown, Verified 07/23/24 09:47) chest pressure metformin Adverse Reaction (Intermediate, Verified 07/23/24 09:47) Abdominal Pain bee Allergy (Uncoded 07/23/24 09:47) throat swelling Medication List - Last Reconciled 07/23/24 by Deborah Hines MD atenolol 50 mg PO DAILY compr.stocking,knee,long,large 10 -20 mmHg with zippers furosemide (Lasix) 20 mg PO DAILY omeprazole 20 mg PO DAILY semaglutide (Ozempic) 0.5 mg (0.736 mL) subcut QWEEK Tobacco use date assessed: 07/23/24 Dental Screening Dental Screen Date: 11/29/23 HPI 3 months follow up visit HPI Details Pt presents for f/u DM2 and HTN, stable on meds. Pt lost 12 lbs since May. [facility] Medical History (Updated 05/07/24 @ 11:49 by Deborah Hines MD) COPD (chronic obstructive pulmonary disease) GERD (gastroesophageal reflux disease) Vitamin D deficiency Hyperglycemia HTN (hypertension) Mammogram normal Postmenopausal Annual physical exam Primary osteoarthritis of both knees Surgical History History of esophagogastroduodenoscopy (EGD) History of total left knee replacement (TKR) H/O colonoscopy History of right knee joint replacement Family History Father Stroke Mother Diabetes Social History Housing: House Patient Tobacco Use Status: Never used Tobacco e-Cigarette/Vaping Use: Never Used service: No Current occupational status: employed Cognitive needs: No Hearing needs: No Vision needs: Yes Questionnaire Thrive Questionnaire Date Thrive assessed: 10/28/23 RAMON-7 AMB Questionnaire RAMON-7 Date RAMON - 7 assessed: 10/28/23 Source: Developed by Drs. Ezio Stewart, Olinda Caldwell, Twin Mujica and colleagues, with an educational danna from [employer]. Review of Systems Const All systems reviewed & are unremarkable except as noted in HPI and below Eyes Reports no additional complaints ENT Reports no additional complaints Card Reports no additional complaints Resp Reports no additional complaints GI Reports no additional complaints Physical exam (Primary Care) Vital Signs: Last Vital Signs Pulse 92 07/23/24 09:44 BP 120/78 07/23/24 09:44 Pulse Ox 97 07/23/24 09:44 Oxygen Delivery Method Room Air 07/23/24 09:44 BMI result Body Mass Index 37.6 Tobacco/Smoking Status: Tobacco use Status Tobacco use date assessed 07/23/24 07/23/24 09:49 Patient Tobacco Use Status Never used Tobacco 07/23/24 09:47 e-Cigarette/Vaping Use Never Used 07/23/24 09:47 Thrive Assessment: Date of Thrive Assessment Date Thrive assessed 10/28/23 07/23/24 09:47 Const General: no acute distress HENMT Head: Yes normal to inspection Face and sinus: Yes normal facial exam Mouth: Normal oral and palatal mucosa present Resp Effort & Inspection: normal respiratory effort Auscultation: clear to auscultation bilaterally Cardio Rhythm: regular rhythm Heart sounds: S1 normal heart sound present and S2 normal heart sound present GI Inspection: Yes normal to inspection Palpation (GI): Soft to palpation Percussion: Yes normal to percussion Auscultation: normal bowel sounds Coding Level of Care Code Est Pt Level 4 (68870) Diagnoses HTN (hypertension) I10 DM type 2 (diabetes mellitus, type 2) E11.9 Overweight E66.3 Assessment & Plan Assessment & Plan (1) HTN (hypertension): Code(s): I10 - Essential (primary) hypertension Category: Medical Plan: Continue atenolol (2) DM type 2 (diabetes mellitus, type 2): Comment: Metformin caused stomach upset Code(s): E11.9 - Type 2 diabetes mellitus without complications Category: Medical Plan: A1c is down to 6.3, continue ADA diet increase physical activity, increase Ozempic to 1 mg weekly patient will start in 3 weeks follow-up in 4 months with a fasting labs before (3) Overweight: Code(s): E66.3 - Overweight Category: Medical Plan: Decreasing caloric intake increasing physical activity and weight loss discussed with patient Orders: Orders Hemoglobin A1c 4 Months E11.9 - Type 2 diabetes mellitus without complications, E66.3 - Overweight, I10 - Essential (primary) hypertension Comprehensive [place]. Panel Fast 4 Months E11.9 - Type 2 diabetes mellitus without complications, E66.3 - Overweight, I10 - Essential (primary) hypertension Lipid Panel 4 Months E11.9 - Type 2 diabetes mellitus without complications, E66.3 - Overweight, I10 - Essential (primary) hypertension Medications: New Ozempic (semaglutide) 1 mg (0.75 mL) subcut QWEEK 9 mL 1RF NS Discontinued furosemide (Lasix) Discontinued Reason: Doctor's Order 20 mg PO DAILY 90 tabs 1RF Ozempic (semaglutide) for 4 weeks then 0.5 mg weekly Discontinued Reason: Doctor's Order 0.25 mg (0.368 mL) subcut QWEEK 9 mL 1RF NS
== END 2024-07-23 10:48 | disposition home or self-care (01) ==
PROVIDERS: PCP Internal Medicine; Visit Provider Internal Medicine
DX: I10 Essential (primary) hypertension (principal); E11.9 Type 2 diabetes mellitus without complications; E66.3 Overweight

== ENCOUNTER → 2024-07-23 09:43 | Outpatient (BNVA) | payer MEDICARE, SELFPAY | PROVIDERS: PCP Internal Medicine; Visit Provider Internal Medicine | DX: I10 Essential (primary) hypertension (principal); E11.9 Type 2 diabetes mellitus without complications; E66.3 Overweight; Z68.37 Body mass index [BMI] 37.0-37.9, adult; Z71.3 Dietary counseling and surveillance | CPT/HCPCS: 99212 ==

== ENCOUNTER 2024-11-17 07:45 | Outpatient (REF) | payer MEDICARE, SELFPAY ==
--- OUTSIDE RECORDS SUMMARY | 2024-11-17 07:53 | XMS_ITS | Clinical Summary ---
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 05/28/2024 Active furosemide (LASIX) 20 mg tablet Take 1 tablet (20 mg total) by mouth 1 (one) time each day. 01/17/2024 Active Ozempic 1 mg/dose (4 mg/3 mL) injection pen 1 mg. 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, right, sequela 09/25/2024 GERD (gastroesophageal reflux disease) 4 HTN (hypertension) 06/19/2024 Osteoarthritis of patellofemoral joint 4 Severe obesity (BMI 35.0-39.9) with comorbidity 06/19/2024 Varicose veins of legs 06/19/2024 Encounters Date Type Department Care Team Description 09/25/2024 10:00 AM EST Office Visit Orthopedic Surgery - [place] [address] [facility] [address] [place] [address] Shante Scott MD Ulnar neuropathy of right upper extremity (Primary Dx); TFCC (triangular fibrocartilage complex) injury, right, sequela from Last 3 Months Immunizations Name Administration Dates Next Due Moderna SARS-CoV-2 COVID-19, mRNA, LNP-S, preservative free 06/03/2022 Surgical History Surgery Date Site/Laterality Comments CARPAL TUNNEL RELEASE Bilateral (~2007) ORIF WRIST FRACTURE Right Social History Tobacco Use Types Packs/Day Years Used Date Smoking Tobacco: Never Assessed Comments Unknown Sex and Gender Information Value Date Recorded Sex Assigned at Not on file Legal Sex Female 6:44 PM EST Gender Identity Not on file Sexual Orientation Not on file Obstetrics History Last Filed Vital Signs Vital Sign Reading Time Taken Comments Blood Pressure - - Pulse - - Temperature - - Respiratory Rate - - Oxygen Saturation - - Inhaled Oxygen Concentration - - Weight 101 kg (222 lb) 09/25/2024 9:42 AM EST Height 160 cm (5' 3 ) 09/25/2024 9:42 AM EST Body Mass Index 39.33 09/25/2024 9:42 AM EST Plan of Treatment Upcoming Encounters Date Type Department Care Team ([facility] st Contact Info) Description 04/09/2025 9:30 AM EDT Office Visit Orthopedic Surgery - [place] [address] [address] Shante Scott MD [address] [address] Health Maintenance Due Date Last Done Comments Breast Cancer Screening 1950 Zoster Vaccines (1 of 2) 12/29/2001 RSV Immunization Adult Patients (1 - Risk 60-74 years 1-dose series) 2011 Pneumococcal Vaccine: 50+ Years (2 of 2 - PCV) 05/29/2020 05/29/2019 COVID-19 Vaccine ( season) 2024 06/03/2022, 07/27/2021, 11/18/2020, Additional history exists Influenza Vaccine (#1) 2024 , 06/07/2021, 07/28/2019 Cholesterol Screening (Lipid Panel) 05/14/2024 Colorectal Cancer Screening: Colonoscopy 05/14/2024 Depression Screening 05/14/2024 Falls Risk Assessment 05/14/2024 Hepatitis C Screening 05/14/2024 Medicare Annual Wellness Visit 05/14/2024 Osteoporosis Screening (Bone Density Screening) 05/14/2024 Social Influencers of Health Screening 05/14/2024 Hypertension/CHF/CAD Annual BMP Blood Test 06/19/2024 DTaP,Tdap,and Td Vaccines (2 - Td or Tdap) 03/14/2026 03/14/2016 HIB Vaccines Aged Out No longer eligi ble based on patient's age to complete this topic HPV Vaccines Aged Out No longer eligi ble based on patient's age to complete this topic Hepatitis A Vaccines Aged Out No long er eligible based on patient's age to complete this topic Hepatitis B Vaccines Aged Out No long er eligible based on patient's age to complete this topic IPV Vaccines Aged Out No longer eligi ble based on patient's age to complete this topic MMR Vaccines Aged Out No longer eligi ble based on patient's age to complete this topic Meningococcal ACWY Vaccine Aged Out N o longer eligible based on patient's age to complete this topic Meningococcal B Vaccine Aged Out No l onger eligible based on patient's age to complete this topic RSV Immunization Patients Under 20 months Aged Out No longer eligible based on patient's age to complete this topic Varicella Vaccines Aged Out No longer eligible based on patient's age to complete this topic Insurance BLUE [employer]OSS - [place] MEDICARE ADVANTAGE Care Teams Tank Truck Mechanic Relationship Specialty Start Date End Date Deborah Hines MD [address] [place] [address] PCP - General Internal Medicine 06/17/24
[2024-11-17 10:23] LABS: Alanine Aminotransferase 21 U/L (0-31); Albumin Level 4.1 g/dL (3.5-5.0); Alkaline Phosphatase 78 U/L (39-117); Anion Gap 11 (12-20); Aspartate Amino Transferase 27 U/L (5-31); Bilirubin Total 0.4 mg/dL (0.0-1.0); Blood Urea Nitrogen 16 mg/dL (9-16); Calcium 9.6 mg/dL (8.4-10.2); Carbon Dioxide 28 mmol/L (22-29); Chloride 106 mmol/L (96-108); Cholesterol 170 mg/dL (<200); Estimated Glomerular Filt Rate > 60; Glucose Fasting 105 mg/dL (60-99); HDL Cholesterol 50 mg/dL (>40); LDL Cholesterol Calculated 102 mg/dL (<100); Potassium 4.3 mmol/L (3.3-5.1); Sodium 141 mmol/L (135-145); Triglycerides 90 mg/dL (<150)
[2024-11-17 10:53] LABS: Estimated Average Glucose 120 mg/dL; Hemoglobin A1C 133.5067 umol/L; Hemoglobin A1c % 5.8 % (<6.0); Total Hemoglobin (HGBA1C) 3322.6643 umol/L
== END 2024-11-17 07:46 | disposition home or self-care (01) ==
LOC: HO.HMGCLDS 07:45
PROVIDERS: PCP Internal Medicine; Visit Provider Internal Medicine
DX: E11.9 Type 2 diabetes mellitus without complications (principal); I10 Essential (primary) hypertension; E66.3 Overweight
CPT/HCPCS: 36415; 80053; 80061; 83036

== ENCOUNTER 2024-11-23 08:54 | Outpatient (AMB) | payer MEDICARE, SELFPAY ==
[2024-11-23 09:09] VITALS: BP 112/66; PULSE 85; RESP 20; TEMP 36.8; O2SAT 96; BMI 36.5
--- NOTE | 2024-11-23 09:09 | A.OFFPC_ITS ---
Vital Signs 11/23/24 09:09 Height 5 ft 6 in Weight 226 lb BMI 36.5 BP 112/66 Blood Pressure Location Rt brachial Position Sitting Respiration 20 Pulse 85 Pulse Source Pulse Oximeter Temp 98.3 F Temp Source Oral Pulse Oximetry (%) 96 Oxygen Delivery Method Room Air Intake Visit Reasons: 4 months f/up Intake Note: Pt is here today for 4 months follow up visit. Allergies acetaminophen [Percocet] Allergy (Unknown, Verified 11/23/24 09:19) chest pressure oxycodone [Percocet] Allergy (Unknown, Verified 11/23/24 09:19) chest pressure metformin Adverse Reaction (Intermediate, Verified 11/23/24 09:19) Abdominal Pain bee Allergy (Uncoded 11/23/24 09:19) throat swelling Medication List - Last Reconciled 11/23/24 by Deborah Hines MD atenolol 50 mg PO DAILY cephalexin 500 mg PO BID 7 days compr.stocking,knee,long,large 10 -20 mmHg with zippers omeprazole 20 mg PO DAILY Ozempic (semaglutide) 1 mg (0.75 mL) subcut QWEEK NS Tobacco use date assessed: 11/23/24 Fall risk assessment: No Falls in past year Last assessed Fall Risk: 11/23/24 Dental Screening Dental Screen Date: 11/29/23 HPI 4 months f/up HPI Details Patient presents for a follow-up. Hypertension is controlled on atenolol chronic GERD-stable on omeprazole. Patient has been taking 1 mg of Ozempic and lost 20 lb in the last 4 months. She has been tolerating medication well. Patient complains of pain and swelling around the 1st right toenail. [facility] Medical History (Updated 11/23/24 @ 09:41 by Deborah Hines MD) COPD (chronic obstructive pulmonary disease) GERD (gastroesophageal reflux disease) Vitamin D deficiency Hyperglycemia HTN (hypertension) Mammogram normal Postmenopausal Annual physical exam Primary osteoarthritis of both knees Surgical History History of esophagogastroduodenoscopy (EGD) History of total left knee replacement (TKR) H/O colonoscopy History of right knee joint replacement Family History Father Stroke Mother Diabetes Social History Housing: House Patient Tobacco Use Status: Never used Tobacco e-Cigarette/Vaping Use: Never Used service: No Current occupational status: employed Cognitive needs: No Hearing needs: No Vision needs: Yes Questionnaire Thrive Questionnaire Date Thrive assessed: 05/04/24 I am a: Patient What is your living situation today?: I have a steady place to live Within the past 12 months, did the food you bought not last and you didn't have the money to get more?: Never true Within the past 12 months, did you worry whether your food would run out before you got money to buy more?: Never true Do you have trouble paying for medicines?: No Do you have trouble getting transportation to medical appointments?: No Do you have trouble paying your heating and electricity bill?: No Do you have trouble taking care of your child, family member or friend?: No Do you have trouble with day-to-day activities such as bathing, preparing meals, shopping, managing finances, etc.?: No Are you currently unemployed and looking for a job?: No Are you interested in more education?: No Please select the resources that you would like help with: None Currently or been in a relationship where the following occur: No concerns reported THRIVE Score: 0 RAMON-7 AMB Questionnaire RAMON-7 Date RAMON - 7 assessed: 10/28/23 Source: Developed by Drs. Ezio Stewart, Olinda Caldwell, Twin Mujica and colleagues, with an educational danna from [employer]. Review of Systems Const All systems reviewed & are unremarkable except as noted in HPI and below Eyes Reports no additional complaints ENT Reports no additional complaints Card Reports no additional complaints Resp Reports no additional complaints GI Reports no additional complaints Reports no additional complaints Physical exam (Primary Care) Vital Signs: Last Vital Signs Temp 98.3 F 11/23/24 09:09 Pulse 85 11/23/24 09:09 Resp 20 11/23/24 09:09 BP 112/66 11/23/24 09:09 Pulse Ox 96 11/23/24 09:09 Oxygen Delivery Method Room Air 11/23/24 09:09 BMI result Body Mass Index 36.5 Tobacco/Smoking Status: Tobacco use Status Tobacco use date assessed 11/23/24 11/23/24 09:21 Patient Tobacco Use Status Never used Tobacco 11/23/24 09:10 e-Cigarette/Vaping Use Never Used 11/23/24 09:10 Thrive Assessment: Date of Thrive Assessment Date Thrive assessed 05/04/24 11/23/24 09:10 Currently or been in a relationship where the following occur: No concerns reported Const General: no acute distress HENMT Head: Yes normal to inspection Eyes General: appearance normal, both eyes and all related structures Neck Neck: Yes supple Resp Effort & Inspection: normal respiratory effort Auscultation: clear to auscultation bilaterally Cardio Rhythm: regular rhythm Heart sounds: S1 normal heart sound present and S2 normal heart sound present GI Inspection: Yes normal to inspection Extrem Other: Right 1st toenail thickened and discolored with erythema around nailbed General: Yes no clubbing, cyanosis or edema Coding Level of Care Code Est Pt Level 4 (16803) Diagnoses Paronychia of great toe L03.039 COPD (chronic obstructive pulmonary disease) J44.9 DM type 2 (diabetes mellitus, type 2) E11.9 Assessment & Plan Assessment & Plan (1) Paronychia of great toe: Code(s): L03.039 - Cellulitis of unspecified toe Category: Medical Plan: Cephalexin 500 mg b.i.d. for 1 week as prescribed. Patient will be referred to Podiatry (2) COPD (chronic obstructive pulmonary disease): Comment: Declined using Anoro Code(s): J44.9 - Chronic obstructive pulmonary disease, unspecified Category: Medical Plan: Uses albuterol p.r.n. only (3) DM type 2 (diabetes mellitus, type 2): Comment: Metformin caused stomach upset Code(s): E11.9 - Type 2 diabetes mellitus without complications Category: Medical Plan: A1c is down to 5.8. Continue ADA diet increase Ozempic to 2 mg a day follow-up in 4 months with a fasting labs before. Orders: Orders Hemoglobin A1c 4 Months E11.9 - Type 2 diabetes mellitus without complications, J44.9 - Chronic obstructive pulmonary disease, unspecified Comprehensive [place]. Panel Fast 4 Months E11.9 - Type 2 diabetes mellitus without complications, J44.9 - Chronic obstructive pulmonary disease, unspecified Referrals Podiatry Referral L03.039 - Cellulitis of unspecified toe Medications: New Ozempic (semaglutide) 2 mg (0.75 mL) subcut QWEEK 3 mL 3RF NS cephalexin 500 mg PO BID 7 days 14 caps 0RF Discontinued Ozempic (semaglutide) Discontinued Reason: Doctor's Order 1 mg (0.75 mL) subcut QWEEK 9 mL 1RF NS
--- OUTSIDE RECORDS SUMMARY | 2024-11-23 09:45 | XMS_ITS | Clinical Summary ---
Author Organization 175 [facility] Address 175 [place] [address] Phone Care Team Providers Care Deputy Fire Marshal Name Role Phone Deborah Hines MD Primary Care Provider [phone] Allergies Active Allergy Reactions Criticality Noted Date [...] of patellofemoral joint 4 Severe obesity (BMI 35.0-39. 9) with comorbidity (CMS/HCC V24, CMS/HCC V28) 06/19/2024 Varicose veins of legs 06/19/2024 Encounters Date Type Department Care Team Description 09/25/2024 10:00 AM EST Office Visit Orthopedic Surgery [facility] [address] [facility] [address] [place] [address] Shante Scott MD Ulnar neuropathy [...] Upcoming Encounters Date Type Department Care Team (Late st Contact Info) Description 04/09/2025 9:30 AM EDT Office Visit Orthopedic Surgery - [place] [address] [facility] [address] [place] [address] Shante Scott MD 175 [facility] [address] [place] [phone] Health Maintenance Due Date Last Done Comments Breast Cancer Screening 1950 Zoster Vaccines (1 of 2) 12/29/2001 RSV Immunization Adult Patients (1 - Risk 60-74 years 1-dose series) 2011 Pneumococcal Vaccine: 50+ Years (2 of 2 - PCV) 05/29/2020 05/29/2019 COVID-19 Vaccine ( season) 2024 06/03/2022, 07/27/2021, 11/18/2020, Additional history exists Cholesterol Screening (Lipid Panel) 05/14/2024 Colorectal Cancer Screening: Colonoscopy 05/14/2024 Depression Screening 05/14/2024 Falls Risk Assessment 05/14/2024 Hepatitis C Screening 05/14/2024 Medicare Annual Wellness Visit 05/14/2024 Osteoporosis Screening (Bone Density Screening) 05/14/2024 Social Influencers of Health Screening 05/14/2024 Hypertension/CHF/CAD Annual BMP Blood Test 06/19/2024 Influenza Vaccine (Season Ended) 2025 06/03/2022, 06/07/2021, 07/28/2019 DTaP,Tdap,and Td Vaccines (2 - Td or [...] CROSS - [place] MEDICARE ADVANTAGE Care Teams Deputy Fire Marshal Relationship Specialty Start Date End Date Deborah Hines MD [address] [place] [address] PCP - General Internal Medicine 06/17/24
== END 2024-11-23 09:52 | disposition home or self-care (01) ==
LOC: HO.HMCC 08:56
PROVIDERS: PCP Internal Medicine; Visit Provider Internal Medicine
DX: L03.039 Cellulitis of unspecified toe (principal); J44.9 Chronic obstructive pulmonary disease, unspecified; E11.9 Type 2 diabetes mellitus without complications

== ENCOUNTER → 2024-11-23 08:54 | Outpatient (BNVA) | payer MEDICARE, SELFPAY | PROVIDERS: PCP Internal Medicine; Visit Provider Internal Medicine | DX: I10 Essential (primary) hypertension (principal); K21.9 Gastro-esophageal reflux disease without esophagitis; J44.9 Chronic obstructive pulmonary disease, unspecified; E11.9 Type 2 diabetes mellitus without complications; L03.031 Cellulitis of right toe; Z79.899 Other long term (current) drug therapy | CPT/HCPCS: 99212 ==

== ENCOUNTER 2025-03-29 07:27 | Outpatient (REF) | payer MEDICARE, SELFPAY ==
[2025-03-29 10:20] LABS: Hemoglobin A1C 134.2797 umol/L; Total Hemoglobin (HGBA1C) 3315.4080 umol/L
[2025-03-29 10:41] LABS: Alanine Aminotransferase 29 U/L (0-31); Albumin Level 4.2 g/dL (3.5-5.0); Alkaline Phosphatase 80 U/L (39-117); Anion Gap 11 (12-20); Aspartate Amino Transferase 27 U/L (5-31); Blood Urea Nitrogen 17 mg/dL (9-16); Calcium 9.2 mg/dL (8.4-10.2); Carbon Dioxide 27 mmol/L (22-29); Chloride 106 mmol/L (96-108); Estimated Glomerular Filt Rate > 60; Potassium 4.3 mmol/L (3.3-5.1); Sodium 140 mmol/L (135-145); Total Protein 6.9 g/dL (6.5-8.0)
== END 2025-03-29 07:28 | disposition home or self-care (01) ==
LOC: HO.HMGCLDS 07:27
PROVIDERS: PCP Internal Medicine; Visit Provider Internal Medicine
DX: E11.9 Type 2 diabetes mellitus without complications (principal); J44.9 Chronic obstructive pulmonary disease, unspecified
CPT/HCPCS: 36415; 80053; 83036

== ENCOUNTER 2025-04-05 09:22 | Outpatient (AMB) | payer MEDICARE, SELFPAY ==
[2025-04-05 09:26] VITALS: BP 120/70; PULSE 86; O2SAT 97; BMI 36.2
--- NOTE | 2025-04-05 09:26 | MHC.PC.OV ---
Vital Signs 04/05/25 09:26 Height 5 ft 6 in Weight 224 lb BMI 36.2 BP 120/70 Blood Pressure Location Lt brachial Position Sitting Pulse 86 Pulse Source Pulse Oximeter Pulse Oximetry (%) 97 Oxygen Delivery Method Room Air Intake Visit Reasons: 4 months f/up Allergies acetaminophen (Percocet) Allergy (Unknown, Verified 04/05/25 09:26) chest pressure oxycodone (Percocet) Allergy (Unknown, Verified 04/05/25 09:26) chest pressure metformin Adverse Reaction (Intermediate, Verified 04/05/25 09:26) Abdominal Pain bee Allergy (Uncoded 11/23/24 09:19) throat swelling Medication List - Last Reconciled 04/05/25 by Deborah Hines MD atenolol 50 mg PO DAILY compr.stocking,knee,long,large 10 -20 mmHg with zippers Ozempic (semaglutide) 2 mg (0.75 mL) subcut QWEEK NS Tobacco use date assessed: 11/23/24 Fall risk assessment: No Falls in past year Last assessed Fall Risk: 04/05/25 Dental Screening Dental Screen Date: 04/05/25 Did you have a dental visit in the last 12 months?: Yes Did you have a dental problem in the last 6 months where you did not have access to dental care?: No Was dental information given to patient?: Patient has dentist HPI 4 months f/up HPI Details Patient presents for the follow-up on hypertension and type 2 diabetes improved on Ozempic. PFSH Medical History COPD (chronic obstructive pulmonary disease) GERD (gastroesophageal reflux disease) Vitamin D deficiency Hyperglycemia HTN (hypertension) Mammogram normal Postmenopausal Annual physical exam Primary osteoarthritis of both knees Surgical History History of esophagogastroduodenoscopy (EGD) History of total left knee replacement (TKR) H/O colonoscopy History of right knee joint replacement Family History Father Stroke Mother Diabetes Social History Housing: House Patient Tobacco Use Status: Never used Tobacco e-Cigarette/Vaping Use: Never Used service: No Current occupational status: employed Cognitive needs: No Hearing needs: No Vision needs: Yes Questionnaire PHQ-9 Over the last 2 weeks, how often have you been bothered by any of the following problems? 1. Little interest or pleasure in doing things: not at all 2. Feeling down, depressed, or hopeless: not at all 3. Trouble falling or staying asleep, or sleeping too much: not at all 4. Feeling tired or having little energy: not at all 5. Poor appetite or overeating: not at all 6. Feeling bad about yourself - or that you are a failure or have let yourself or your family down: not at all 7. Trouble concentrating on things, such as reading the newspaper or watching television: not at all 8. Moving or speaking so slowly that other people could have noticed. Or the opposite - being so fidgety or restless that you have been moving around a lot more than usual: not at all 9. Thoughts that you would be better off or of hurting yourself in some way: not at all Total score: 0 Depression Screening Interpretation: Negative Depression Screening Done: Yes 53283 - PHQ-9 Billing: Yes Source: Developed by Drs. Ezio Stewart, Olinda Caldwell, Twin Mujica and colleagues, with an educational danna from [employer]. Thrive Questionnaire Date Thrive assessed: 04/05/25 I am a: Patient What is your living situation today?: I have a steady place to live Within the past 12 months, did the food you bought not last and you didn't have the money to get more?: Never true Within the past 12 months, did you worry whether your food would run out before you got money to buy more?: Never true Do you have trouble paying for medicines?: No Do you have trouble getting transportation to medical appointments?: No Do you have trouble paying your heating and electricity bill?: No Do you have trouble taking care of your child, family member or friend?: No Do you have trouble with day-to-day activities such as bathing, preparing meals, shopping, managing finances, etc.?: No Are you currently unemployed and looking for a job?: No Are you interested in more education?: No Please select the resources that you would like help with: None Currently or been in a relationship where the following occur: No concerns reported THRIVE Score: 0 AUDIT C Alcohol Use Questionnaire (AUDIT-C) 1. How often do you have a drink containing alcohol?: Monthly or less 2. How many drinks containing alcohol do you have on a typical day when you are drinking?: 1 or 2 3. How often do you have six or more drinks on one occasion?: Never Total Score: 1 Score Reviewed/Action Taken: Yes RAMON-7 AMB Questionnaire RAMON-7 Date RAMON - 7 assessed: 04/05/25 Feeling nervous, anxious, or on edge: 0 = Not at all Not being able to stop or control worryin = Not at all Worrying too much about different things: 0 = Not at all Trouble relaxin = Not at all Being so restless that it is hard to sit still: 0 = Not at all Becoming easily annoyed or irritable: 0 = Not at all Feeling afraid as if something awful might happen: 0 = Not at all Total RAMON-7 score (0-4 normal; 5-9 mild; 10-14 moderate; 15-21 severe): 0 Source: Developed by Drs. Ezio Stewart, Olinda Caldwell, Twin Mujica and colleagues, with an educational danna from [employer]. RAMON-7 Assessment Billing RAMON-7 Assessment Tool: RAMON-7 Assessment 17148 Review of Systems Const All systems reviewed & are unremarkable except as noted in HPI and below Eyes Reports no additional complaints ENT Reports no additional complaints Card Reports no additional complaints Resp Reports no additional complaints GI Reports no additional complaints Reports no additional complaints Physical exam (Primary Care) Vital Signs: Last Vital Signs Pulse 86 04/05/25 09:26 BP 120/70 04/05/25 09:26 Pulse Ox 97 04/05/25 09:26 Oxygen Delivery Method Room Air 04/05/25 09:26 BMI result Body Mass Index 36.2 Tobacco/Smoking Status: Tobacco use Status Tobacco use date assessed 11/23/24 04/05/25 09:27 Patient Tobacco Use Status Never used Tobacco 04/05/25 09:27 e-Cigarette/Vaping Use Never Used 04/05/25 09:27 PHQ-9: PHQ-9 Score PHQ-9: Total score 0 04/05/25 09:54 Depression Screening Interpretation: Negative Thrive Assessment: Date of Thrive Assessment Date Thrive assessed 04/05/25 04/05/25 09:27 Currently or been in a relationship where the following occur: No concerns reported Const General: no acute distress HENMT Head: Yes normal to inspection Face and sinus: Yes normal facial exam Eyes General: appearance normal, both eyes and all related structures Neck Neck: Yes supple Resp Effort & Inspection: normal respiratory effort Auscultation: clear to auscultation bilaterally Cardio Rhythm: regular rhythm Heart sounds: S1 normal heart sound present and S2 normal heart sound present GI Inspection: Yes normal to inspection Palpation (GI): Soft to palpation Percussion: Yes normal to percussion Auscultation: normal bowel sounds Coding Level of Care Code Est Pt Level 4 (59302) Diagnoses HTN (hypertension) I10 DM type 2 (diabetes mellitus, type 2) E11.9 Additional Codes RAMON-7 Assessment Billing - RAMON-7 Assessment Tool: RAMON-7 Assessment 83001 ([id number]) PHQ-9 - 35834 - PHQ-9 Billing: Yes ([id number]) Assessment & Plan Assessment & Plan (1) HTN (hypertension): Code(s): I10 - Essential (primary) hypertension Category: Medical Plan: Continue atenolol (2) DM type 2 (diabetes mellitus, type 2): Comment: Metformin caused stomach upset Code(s): E11.9 - Type 2 diabetes mellitus without complications Category: Medical Plan: A1c is 5.9, ADA diet increase exercise weight loss discussed with the patient. Continue Ozempic follow-up in 4 months with a fasting labs before Orders: Orders Hemoglobin A1c 4 Months E11.9 - Type 2 diabetes mellitus without complications, I10 - Essential (primary) hypertension, R73.9 - Hyperglycemia, unspecified Microalbumin, Random (w Creat) 4 Months E11.9 - Type 2 diabetes mellitus without complications, I10 - Essential (primary) hypertension, R73.9 - Hyperglycemia, unspecified Comprehensive [place]. Panel Fast 4 Months E11.9 - Type 2 diabetes mellitus without complications, I10 - Essential (primary) hypertension, R73.9 - Hyperglycemia, unspecified Complete Blood Count Auto Diff 4 Months E11.9 - Type 2 diabetes mellitus without complications, I10 - Essential (primary) hypertension, R73.9 - Hyperglycemia, unspecified Lipid Panel 4 Months E11.9 - Type 2 diabetes mellitus without complications, I10 - Essential (primary) hypertension, R73.9 - Hyperglycemia, unspecified TSH reflex Free T4 4 Months E11.9 - Type 2 diabetes mellitus without complications, I10 - Essential (primary) hypertension, R73.9 - Hyperglycemia, unspecified Medications: Refilled Ozempic (semaglutide) 2 mg (0.75 mL) subcut QWEEK 9 mL 3RF NS Ozempic (semaglutide) 2 mg (0.75 mL) subcut QWEEK 9 mL 3RF NS
--- OUTSIDE RECORDS SUMMARY | 2025-04-05 10:07 | XMS_ITS | Clinical Summary ---
Author Organization 175 [facility] Address [address] [place] [address] Phone Care Team Providers Care Research Animal Attendant Name Role Phone Deborah Hines MD Primary Care Provider [phone] Allergies Active Allergy Reactions Criticality Noted Date [...] Encounters Date Type Department Care Team Description 01/19/2025 Telephone Orthopedic Surgery [facility] [address] [facility] [address] [place] [address] Yoav Kaye, DPM 01/14/2025 1:45 PM EDT Consult Orthopedic Surgery [facility] [address] [phone] Yoav Kaye DPM Dermatophytosis of nail (Primary Dx); Cellulitis of unspecified toe; Pain in toe of right foot; Pain in toe of left foot; Primary osteoarthritis of both feet; Bilateral femoral artery stenosis (CMS/HCC V24); Ingrowing nail from Last 3 Months Immunizations Name Administration [...] - Inhaled Oxygen Concentration - - Weight 102 kg (224 lb) 01/14/2025 2:04 PM EDT Height 160 cm (5' 3 ) 01/14/2025 2:04 PM EDT Body Mass Index 39.68 01/14/2025 2:04 PM EDT Plan of Treatment Upcoming Encounters Date Type Department Care Team (Late st Contact Info) Description 04/23/2025 11:15 AM EDT Office Visit Orthopedic Surgery [facility] [address] [phone] Shante Scott MD [address] [phone] 05/13/2025 9:00 AM EDT Office Visit Orthopedic [place] [address] [phone] Yoav Kaye DPM [address] [address] Health Maintenance Due Date Last Done Comments Breast Cancer Screening 1950 Zoster Vaccines (1 of 2) 12/29/2001 RSV Immunization Adult Patients (1 - Risk 60-74 years 1-dose series) 2011 Pneumococcal Vaccine: 50+ Years (2 of 2 - PCV) 05/29/2020 05/29/2019 COVID-19 Vaccine ( season) 2024 06/03/2022, 07/27/2021, 11/18/2020, Additional history exists Cholesterol Screening (Lipid Panel) 05/14/2024 Colorectal Cancer Screening: Colonoscopy 05/14/2024 Falls Risk Assessment 05/14/2024 Hepatitis C Screening 05/14/2024 Medicare Annual Wellness Visit 05/14/2024 Osteoporosis Screening (Bone Density Screening) 05/14/2024 Social Influencers of Health Screening 05/14/2024 Hypertension/CHF/CAD Annual BMP Blood Test 06/19/2024 Depression Screening 08/12/2024 Influenza Vaccine (#1) 2025 , 06/07/2021, 07/28/2019 DTaP,Tdap,and Td Vaccines (2 - [...] patient's age to complete this topic Insurance MEDICARE [facility] Care Teams Research Animal Attendant Relationship Specialty Start Date End Date Deborah Hines MD [address] [place] [address] PCP - General Internal Medicine 06/17/24
== END 2025-04-05 09:59 | disposition home or self-care (01) ==
LOC: HO.HMCC 09:23
PROVIDERS: PCP Internal Medicine; Visit Provider Internal Medicine
DX: I10 Essential (primary) hypertension (principal); E11.9 Type 2 diabetes mellitus without complications

== ENCOUNTER → 2025-04-05 09:22 | Outpatient (BNVA) | payer MEDICARE, SELFPAY | PROVIDERS: PCP Internal Medicine; Visit Provider Internal Medicine | DX: I10 Essential (primary) hypertension (principal); E11.65 Type 2 diabetes mellitus with hyperglycemia | CPT/HCPCS: 96127; 99212 ==

== ENCOUNTER 2025-05-13 10:04 | Outpatient (AMB) | payer MEDICARE, SELFPAY ==
[2025-05-13 10:06] VITALS: BP 118/76; PULSE 75; RESP 18; TEMP 36.7; O2SAT 96; BMI 35.8
--- NOTE | 2025-05-13 10:06 | AM.OFFVISMDC ---
Intake Vital Signs 05/13/25 10:06 Height 5 ft 6 in Weight 222 lb BMI 35.8 BP 118/76 Blood Pressure Location Rt brachial Position Sitting Respiration 18 Pulse 75 Pulse Source Pulse Oximeter Temp 98.1 F Temp Source Oral Pulse Oximetry (%) 96 Oxygen Delivery Method Room Air Intake Visit Reasons: SWV G0439 Intake Note: Pt is here today for AWV. Allergies acetaminophen (Percocet) Allergy (Unknown, Verified 05/13/25 10:12) chest pressure oxycodone (Percocet) Allergy (Unknown, Verified 05/13/25 10:12) chest pressure metformin Adverse Reaction (Intermediate, Verified 05/13/25 10:12) Abdominal Pain bee Allergy (Uncoded 05/13/25 10:12) throat swelling Medication List - Last Reconciled 05/13/25 by Deborah Hines MD atenolol 50 mg PO DAILY compr.stocking,knee,long,large 10 -20 mmHg with zippers Ozempic (semaglutide) 2 mg (0.75 mL) subcut QWEEK NS HPI SWV G0439 HPI Details Initiated the conversation about Advanced Directives. Advanced Directives help? patients prepare for current and future decisions about their medical treatment? and place of care. Discussed with patient that it is a process where a patients? current condition and prognosis are reviewed, their wishes for information? regarding their illness are elicited, and likely medical dilemmas are presented? and options discussed. The form can be amended as needed, reviewed yearly and? make changes as needed IPPE/AWV ? year old presents? for her ? Annual? Wellness Visit, initial visit.? Medical / Social History Reviewed? Past Medical History ?Yes? . ? [place]? of Care / Care Team list updated ?Yes . ? Surgical/Hospitalization? History ?Yes . ? Current Medications? (including OTC and supplements) ?Yes . ? Family History ?Yes? . ? Tobacco? Control form ?Yes . ? AUDIT-C (Alcohol use) form? ?Yes . ? Illicit drug use in Social? History ?Yes . ? Current diagnosis of? depression? ?No ? Appropriate PHQ2/PHQ9? completed ?Yes . ? Data entered by ?Medical? Rn Mds Coordinator and reviewed by provider ? Fall Risk ? Fall? History? Have you had any falls with? injury in the past year? ?No . ? Have you had two or more? falls in the past year? ?No . ? Fall Risk Assessment: ?No? falls in the past year . ? HRA filled out by? the patient, reviewed by Provider and scanned. ? IPPE/AWV ? Balance? [place]? ?Yes . ? Tandem? walk ?Yes . ? Walk and? Turn ?Yes . ? Rise from? sit to stand ?Yes . ?Vision? Corrective? lens ?Yes ? Vision? screen ? Up-to-date, has an appointment [] for vision? screening and glaucoma screening ?Hearing? Whisper? test ?pass .? Initiated the conversation about Advanced Directives. Advanced Directives help? patients prepare for current and future decisions about their medical treatment? and place of care. Discussed with patient that it is a process where a patients? current condition and prognosis are reviewed, their wishes for information? regarding their illness are elicited, and likely medical dilemmas are presented? and options discussed. The form can be amended as needed, reviewed yearly and? make changes as needed Written? Plan?Completed. See Patient? Documents. [facility] Medical History COPD (chronic obstructive pulmonary disease) GERD (gastroesophageal reflux disease) Vitamin D deficiency Hyperglycemia HTN (hypertension) Mammogram normal Postmenopausal Annual physical exam Primary osteoarthritis of both knees Surgical History History of esophagogastroduodenoscopy (EGD) History of total left knee replacement (TKR) H/O colonoscopy History of right knee joint replacement Family History Father Stroke Mother Diabetes Social History Housing: House Patient Tobacco Use Status: Never used Tobacco e-Cigarette/Vaping Use: Never Used service: No Current occupational status: employed Cognitive needs: No Hearing needs: No Vision needs: Yes Questionnaire Medicare Wellness Checkup [age] What gender do you identify with?: female During the past 4 weeks, how much have you been bothered by emotional problems such as feeling anxious, depressed, irritable, sad or downhearted, and blue?: not at all During the past 4 weeks, has your physical & emotional health limited your social activities with family, friends, neighbors, or groups?: not at all During the past 4 weeks, how much bodily pain have you generally had?: very mild pain During the past 4 weeks, was someone available to help you if you needed & wanted help?: yes, as much as I wanted During the past 4 weeks, what was the hardest physical activity you could do for at least 2 minutes?: moderate Can you get to places out of walking distance without help? (For eg., can you travel alone on buses, taxis or drive your car?): Yes Can you go shopping for groceries or clothes without someone's help?: Yes Can you prepare your own meals?: Yes Can you do your housework without help?: Yes Because of any health problems, do you need the help of another person with your personal care needs such as eating, bathing, dressing or getting around the house?: No Can you handle your own money without help?: Yes During the past 4 weeks, how would you rate your health in general?: very good During the past 4 weeks how have things been going for you?: very well; could hardly better Are you having difficulties driving your car?: not applicable, I don't use a car Do you always fasten your seat belt when you are in a car?: yes, usually During past 4 weeks, have you been bothered by the following: never: Falling or dizzy when standing up, Sexual problems?, Trouble eating well?, Teeth or denture problems?, Problems using the telephone? and Tiredness or fatigue? Have you fallen 2 or more times in the past year?: No Are you afraid of falling?: No Are you a smoker?: no During the past 4 weeks, how many drinks of wine, beer, or other alcoholic beverages did you have?: no alcohol at all Do you exercise for about 20 minutes 3 or more times a week?: no, I usually do not exercise this much Have you been given information to help with the following?: no: Hazards in your house that might hurt you? and no: Keeping track of your medications? How often do you have trouble taking medicines the way you have been told to take them?: I always take medicine as prescribed How confident are you that you can control & manage most of your health problems?: very confident What is your race?: White Mini Mental State Exam (MMSE) Orientation What is the (year) (season) (date) (day) (month)?: year, season, date, day and month Where are we (state) (county) (town or city) (hospital) (floor)?: state, county, town or city, hospital/clinic and floor Registration Name of 3 unrelated objects clearly and slowly, then ask patient to repeat all 3 of them. (1st repeat determines score. Make sure they can repeat all three): object 1, object 2 and object 3 Attention & Calculation (CHOOSE ONE) [employer] backwards (DLROW): 5 letters Recall Ask patient to repeat the 3 items from question #3.: object 1, object 2 and object 3 Language Show patient a wristwatch & ask what it is. Repeat for pencil.: watch and pencil Ask the patient to repeat the phrase 'No ifs, ands, or buts' after you.: correct Ask the patient to 'take a piece of paper with their right hand' 'fold paper in half' 'place paper on floor': take paper in right hand, fold paper in half and place paper on floor Print the sentence 'CLOSE YOUR EYES' on a piece. If patient actually closes eyes then score.: followed written direction Give patient a blank piece of paper & ask to write a sentence. Score if it contains a noun & verb.: sentence contains subject and verb Score Score: 29 PHQ-9 Over the last 2 weeks, how often have you been bothered by any of the following problems? 1. Little interest or pleasure in doing things: not at all 2. Feeling down, depressed, or hopeless: not at all 3. Trouble falling or staying asleep, or sleeping too much: not at all 4. Feeling tired or having little energy: not at all 5. Poor appetite or overeating: not at all 6. Feeling bad about yourself - or that you are a failure or have let yourself or your family down: not at all 7. Trouble concentrating on things, such as reading the newspaper or watching television: not at all 8. Moving or speaking so slowly that other people could have noticed. Or the opposite - being so fidgety or restless that you have been moving around a lot more than usual: not at all 9. Thoughts that you would be better off or of hurting yourself in some way: not at all Total score: 0 Depression Screening Interpretation: Negative Depression Screening Done: Yes Source: Developed by Drs. Ezio Stewart, Olinda Caldwell, Twin Mujica and colleagues, with an educational danna from [employer]. Review of Systems Const All systems reviewed & are unremarkable except as noted in HPI and below ENT Reports no additional complaints Card Reports no additional complaints Resp Reports no additional complaints GI Reports no additional complaints Reports no additional complaints Physical Exam Vital Signs: Last Vital Signs Temp 98.1 F 05/13/25 10:06 Pulse 75 05/13/25 10:06 Resp 18 05/13/25 10:06 BP 118/76 05/13/25 10:06 Pulse Ox 96 05/13/25 10:06 Oxygen Delivery Method Room Air 05/13/25 10:06 BMI result Body Mass Index 35.8 Const General: no acute distress Eyes General: appearance normal, both eyes and all related structures Neck Neck: Yes supple Resp Effort & Inspection: normal respiratory effort Auscultation: clear to auscultation bilaterally Cardio Rhythm: regular rhythm Heart sounds: S1 normal heart sound present and S2 normal heart sound present GI Inspection: Yes normal to inspection Palpation (GI): Soft to palpation Percussion: Yes normal to percussion Auscultation: normal bowel sounds Extrem General: Yes no clubbing, cyanosis or edema Assessment & Plan Assessment & Plan (1) Hoarseness: Comment: Chronic hoarseness, ex smoker quit 15 yrs ago Code(s): R49.0 - Dysphonia Plan: refer to ENT (2) HTN (hypertension): Code(s): I10 - Essential (primary) hypertension Plan: Continue atenolol (3) DM type 2 (diabetes mellitus, type 2): Comment: Metformin caused stomach upset Code(s): E11.9 - Type 2 diabetes mellitus without complications Plan: Continue Ozempic (4) Annual physical exam: Comment: DEXA 2020 NORMAL Code(s): Z00.00 - Encounter for general adult medical examination without abnormal findings Plan: Well-balanced diet regular physical activity discussed with the patient she is up-to-date with the mammogram colonoscopy and DEXA Orders: Referrals Ear/Nose/Throat Referral R49.0 - Dysphonia Quality Reporting (2019) Depression/Bipolar (159/160/161/177) PHQ-9: Total score: 0 Coding Level of Care Code Medicare Subsequent (G0439) Diagnoses Hoarseness R49.0 HTN (hypertension) I10 DM type 2 (diabetes mellitus, type 2) E11.9 Annual physical exam Z00.00 CPT Codes Advance Care Planning - Advance Care Planning discussion: On file, no changes ([id number]) Advance Care Planning - Time spent: 1-15 minutes, on File ([id number]) Advance Care Planning Advance Care Planning discussion: On file, no changes Forms completed: Health Care Proxy Time spent: 1-15 minutes, on File
--- OUTSIDE RECORDS SUMMARY | 2025-05-13 11:26 | XMS_ITS | Clinical Summary ---
Author Organization 175 [facility] Address 175 [place] [address] Phone Care Team Providers Care Scrub Woman Name Role Phone Deborah Hines MD Primary Care Provider [phone] Allergies Active Allergy Reactions Criticality Noted Date [...] 1 (one) time each day. 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 9) with comorbidity (CMS/HCC V24, CMS/HCC V28) 06/19/2024 Varicose veins of legs 06/19/2024 Encounters Date Type Department Care Team Description 04/23/2025 11:15 AM EDT Office Visit Orthopedic Surgery [facility] 175 [facility] [address] [place] [address] Shante Scott MD Ulnar neuropathy of right upper extremity (Primary Dx); TFCC (triangular fibrocartilage complex) injury, right, sequela from Last 3 Months Immunizations Immunization Administration Dates Next Due Moderna SARS-CoV-2 COVID-19, [...] - Inhaled Oxygen Concentration - - Weight 99.3 kg (219 lb) 04/23/2025 11:44 AM EDT Height 160 cm (5' 3 ) 04/23/2025 11:44 AM EDT Body Mass Index 38.79 04/23/2025 11:44 AM EDT Plan of Treatment Upcoming Encounters Date Type Department Care Team ([facility] st Contact Info) Description 05/20/2025 9:45 AM EDT Office Visit Orthopedic Surgery - [place] [address] [phone] Yoav Kaye, DPM [address] [phone] Health Maintenance Due Date Last Done Comments Breast Cancer Screening 1950 Colorectal Cancer Screening: Colonoscopy 1950 Zoster Vaccines (1 of 2) 12/29/2001 RSV Immunization Adult Patients (1 - Risk 60-74 years 1-dose series) 2011 Pneumococcal Vaccine: 50+ Years (2 of 2 - PCV) 05/29/2020 05/29/2019 Cholesterol Screening (Lipid Panel) 05/14/2024 Falls Risk Assessment 05/14/2024 Hepatitis C Screening 05/14/2024 Medicare Annual Wellness Visit 05/14/2024 Osteoporosis Screening (Bone Density Screening) 05/14/2024 Social Influencers of Health Screening 05/14/2024 Hypertension/CHF/CAD Annual BMP Blood Test 06/19/2024 Depression Screening 08/12/2024 COVID-19 Vaccine ( season) 2025 06/03/2022, 07/27/2021, 11/18/2020, Additional history exists Influenza Vaccine (#1) 2025 , 06/07/2021, 07/28/2019 [...] age to complete this topic Insurance MEDICARE [facility] Care Teams Scrub Woman Relationship Specialty Start Date End Date Deborah Hines MD [address] [place] [address] PCP - General Internal Medicine 06/17/24
== END 2025-05-13 11:11 | disposition home or self-care (01) ==
LOC: HO.HMCC 10:05
PROVIDERS: PCP Internal Medicine; Visit Provider Internal Medicine
DX: Z00.00 Encounter for general adult medical examination without abnormal findings (principal); E11.9 Type 2 diabetes mellitus without complications; R49.0 Dysphonia; I10 Essential (primary) hypertension

== ENCOUNTER 2025-08-03 07:50 | Outpatient (REF) | payer MEDICARE, SELFPAY ==
--- OUTSIDE RECORDS SUMMARY | 2025-08-03 07:54 | XMS_ITS | Clinical Summary ---
Author Organization 175 [facility] Address [address] [place] [address] Phone Care Team Providers Care Storeroom Supervisor Name Role Phone Deborah Hines MD Primary Care Provider Allergies Active Allergy Reactions Criticality Noted Date [...] Encounters Date Type Department Care Team Description 07/16/2025 Lab Requisition [facility] - Main Lab [address] [facility] [place] [address] Chavo Del Cid MD Pyuria 05/20/2025 9:45 AM EDT Office Visit Orthopedic Surgery - [place] [address] [phone] Yoav Kaye DPM Dermatophytosis of nail (Primary Dx); Pain in toe of right foot; Primary osteoarthritis of both feet; Bilateral femoral artery stenosis (CMS/HCC V24); Tinea pedis of both feet; Ingrowing nail; Pain in toe of left foot from Last 3 Months Immunizations Immunization Administration [...] on file Sexual Orientation Not on file Last Filed Vital Signs Vital Sign Reading [...] Care Team (Late st Contact Info) Description 09/20/2025 9:15 AM EST Office Visit Orthopedic Surgery [place] [address] [phone] Yoav Kaye DPM [address] [phone] Health Maintenance Due Date Last Done Comments Breast Cancer Screening 1950 Colorectal Cancer Screening: Colonoscopy 1950 RSV Immunization Adult Patients (1 - Risk 50-74 years 1-dose series) 12/29/2001 Zoster Vaccines (1 of 2) 12/29/2001 Pneumococcal Vaccine: 50+ Years (2 of 2 [...] Additional history exists Influenza Vaccine (#1) 2025 2, 06/07/2021, 07/28/2019 DTaP,Tdap,and Td Vaccines (2 - [...] on patient's age to complete this topic Procedures Procedure Name Priority Date/Time Associated Diagnosis Comments BACTERIAL IDENTIFICATION AND SUSCEPTIBILITY, AEROBIC Routine 07/15/2025 9:05 AM EST Pyuria from Last 3 Months Results * Baterial identification and susceptibility, aerobic (07/15/2025 9:05 AM EST) Culture, Bacterial ID and Sensitivity Mixed urogenital ora, no uropathogens present. Suggest repeat specimen, if clinically indicated. 07/16/2025 10:51 AM EST [facility] [place] [facility] Urine 07/15/2025 9:05 AM EST 07/16/2025 10:10 AM EST Chavo Del Cid MD LAB MICROBIOLOGY - GENERAL ORDER [place] Final Result [facility] [address] [place] [address], from Last 3 Months Insurance MEDICARE [facility] Care Teams Storeroom Supervisor Relationship Specialty Start Date End Date Deborah Hines MD [address] [place] [phone] PCP - General Internal Medicine 06/17/24
--- OUTSIDE RECORDS SUMMARY | 2025-08-03 07:54 | XMS_ITS | Encounter Summary ---
Author Organization [facility] Address [id number] [place] [phone] Care Team Providers Care Elderly Sitter Name Role Phone Deborah Hines MD Primary Care Provider Encounter Details Date Type Department Care Team (Late st Contact Info) Description 07/16/[address] [facility] - Main Lab 299 [facility] [place] [phone] Chavo Del Cid MD [address] [facility] [address] [place] [phone] Pyuria Social History Tobacco Use Types Packs/Day Years Used Date Smoking Tobacco: Never Assessed Comments Unknown Sex and Gender Information Value Date Recorded Sex Assigned at Not on file Legal Sex Female 6:44 PM EST Gender Identity Not on file Sexual Orientation Not on file documented as of this encounter Plan of Treatment Upcoming Encounters Date Type Department Care Team (Late st Contact Info) Description 09/20/2025 9:15 AM EST Office Visit Orthopedic Surgery - [place] [address] [phone] Yoav Kaye DPM [address] [phone] documented as of this encounter Procedures Procedure Name Priority Date/Time Associated Diagnosis Comments BACTERIAL IDENTIFICATION AND SUSCEPTIBILITY, AEROBIC Routine 07/15/2025 9:05 AM EST Pyuria documented in this encounter Results * Baterial identification and susceptibility, aerobic (07/15/2025 9:05 AM EST) Culture, Bacterial ID and Sensitivity Mixed urogenital ora, no uropathogens present. Suggest repeat specimen, if clinically indicated. 07/16/2025 10:[address] [facility] Urine 07/15/2025 9:05 AM EST 07/16/2025 10:10 AM EST us Chavo Del Cid MD LAB MICROBIOLOGY - GENERAL ORDER [place] Final Result [facility] [address] [place] [address], documented in this encounter Visit Diagnoses Diagnosis Pyuria Other nonspecific finding on examination of urine documented in this encounter Care Teams Elderly Sitter Relationship Specialty Start Date End Date Deborah Hines MD [address] [place] [phone] PCP - General Internal Medicine 06/17/24 documented as of this encounter
--- OUTSIDE RECORDS SUMMARY | 2025-08-03 07:54 | XMS_ITS | Clinical Summary ---
Author Organization [facility] Address [address] [place] [phone] Care Team Providers Care Hat Blocking Operator Name Role Phone Unavailable Primary Care Provider Unavailabl e Social History Tobacco Use Types Packs/Day Years Used Date Smoking Tobacco: Never Assessed Comments Unknown Sex and Gender Information Value Date Recorded Sex Assigned at Not on file Legal Sex Female 11:32 PM EST Gender Identity Not on file Sexual Orientation Not on file Last Filed Vital Signs Vital Sign Reading Time Taken Comments Blood Pressure - - Pulse - - Temperature - - Respiratory Rate - - Oxygen Saturation - - Inhaled Oxygen Concentration - - Weight 99.8 kg (220 lb) 11/15/2020 12:1 5 PM EDT Height 165.1 cm (5' 5 ) 11/15/2020 12:1 5 PM EDT Entered Value: 5'5 Body Mass Index 36.61 11/15/2020 12:15 PM EDT Plan of Treatment Not on file
[2025-08-03 10:41] LABS: MANUAL DIFF FLAG NO
[2025-08-03 10:51] LABS: Hematocrit 37.1 % (37.0-47.0); Hemoglobin 11.6 g/dl (12.0-16.0); Imm Gran Abs Auto 0.01 X10*3/uL (0.00-0.03); Imm Gran Pct Auto 0.2 % (0.0-0.4); Lymphocytes Absolute Auto 2.1 X10*3/uL (1.2-4.9); Mean Corpuscular HGB Conc 31.3 g/dl (31.0-35.0); Mean Corpuscular Hemoglobin 29.7 pg (27.0-33.0); Mean Corpuscular Volume 94.9 fL (80.0-98.0); NRBC Abs Auto 0.000 X10*3/uL (0.0-0.012); NRBC Pct Auto 0.0 /100WBC (0.0-0.2); Platelet Count 221 X10*3/uL (160-400); Red Blood Count 3.91 X10*6/uL (4.20-5.50); White Blood Count 5.6 X10*3/uL (4.8-10.8)
[2025-08-03 11:10] LABS: Alanine Aminotransferase 23 U/L (0-31); Albumin Level 4.1 g/dL (3.5-5.0); Alkaline Phosphatase 81 U/L (39-117); Anion Gap 10 (12-20); Aspartate Amino Transferase 25 U/L (5-31); Blood Urea Nitrogen 20 mg/dL (9-16); Calcium 9.3 mg/dL (8.4-10.2); Carbon Dioxide 28 mmol/L (22-29); Chloride 108 mmol/L (96-108); Cholesterol 186 mg/dL (<200); Estimated Glomerular Filt Rate > 60; HDL Cholesterol 48 mg/dL (>40); Potassium 4.1 mmol/L (3.3-5.1); Sodium 142 mmol/L (135-145); Total Protein 6.9 g/dL (6.5-8.0); Triglycerides 66 mg/dL (<150)
[2025-08-03 11:26] LABS: Microalbum/Creatinine Ratio Ur 30.9 ug/mg cr (<30)
== END 2025-08-03 07:51 | disposition home or self-care (01) ==
LOC: HO.HMGCLDS 07:50
PROVIDERS: PCP Internal Medicine; Visit Provider Internal Medicine
DX: E11.65 Type 2 diabetes mellitus with hyperglycemia (principal); I10 Essential (primary) hypertension
CPT/HCPCS: 36415; 80053; 80061; 82043; 82570; 83036; 84443; 85025